=== PATIENT | female | born 1945 | race Caucasian/White ===

== ENCOUNTER 2018-06-30 14:11 | Emergency (ER) | payer OTHER ==
[2018-06-30 16:51] LABS: Absolute Lymphocytes (CBC) 1.9 K/uL (0.7-4.9); Absolute Monocytes 0.9 K/uL (0.1-1.3); Basophils % 0.6 % (0-1.3); Eosinophils % 2.2 % (0-4.4); Hematocrit 37.7 % (36.0-45.0); Lymphocytes % 21.3 % (15.3-44.8); Monocytes % 10.1 % (3.3-12.3)
[2018-06-30 16:54] LABS: Protime INR 0.98
[2018-06-30 17:13] LABS: ALT/SGPT 26 U/L (12-78); AST/SGOT 14 U/L (15-37); Albumin 3.6 g/dL (3.4-5.0); Alkaline Phosphatase 63 U/L (45-117); BUN Blood Urea Nitrogen 23 mg/dL (7-18); Bicarbonate 29 mmol/L (21-32); Bilirubin Direct 0.1 mg/dL (0-0.2); Bilirubin Total 0.3 mg/dL (0.2-1.0); Glucose Level 86 mg/dL (74-106); Magnesium 2.3 mg/dL (1.8-2.4); NT PRO-BNP 219 pg/mL (<125); Potassium 3.7 mmol/L (3.5-5.1); Protein, Total 6.7 g/dL (6.4-8.2); Sodium Level 141 mmol/L (136-145); Troponin (Emerg Dept Use Only) < 0.02 ng/mL (0.0-0.045)
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
[2018-06-30] MEDS ORDERED: HYDROCODONE/APAP 10/325 TAB ONE (19:38)
[2018-06-30] MEDS ORDERED: KETOROLAC 30 MG/ML INJ ONE (19:38)
--- NOTE | 2018-07-01 08:47 | EKG ---
Test Date: 2018-06-30 Test Time: 16:02:17 Land Classifier: EVELYNE MEASUREMENT RESULTS: Intervals: Rate: 65 MD: 230 QRSD: 88 QT: 426 QTc: 443 [place]: P: 58 MD: 230 QRS: -18 T: 40 INTERPRETIVE STATEMENTS: Sinus rhythm with 1st degree AV block Low voltage QRS Cannot rule out Anterior infarct, age undetermined Abnormal ECG No previous ECG available for comparison Electronically Signed On 07-01-18 08:46:49 [employer]ACH[employer] by Richard Murdock
== END 2018-06-30 19:53 | disposition home or self-care (01) ==
LOC: ER 14:11
DX: R07.89 Other chest pain (principal); V89.2XXA Person injured in unspecified motor-vehicle accident, traffic, initial encounter; Z86.718 Personal history of other venous thrombosis and embolism
CPT/HCPCS: 36415; 71250; 74176; 80048; 80076; 83735; 83880; 84484; 85025; 85610; 93005; 96372; 99285

== ENCOUNTER 2020-12-08 20:15 | Inpatient (IN) | payer OTHER ==
--- OUTSIDE RECORDS SUMMARY | 2020-12-08 20:18 | XMS REPORT | Continuity of Care Document ---
:1945 Author Organization [facility] t Address [address] [place] [address] Care Team Providers Name Role Phone Nisreen Jack Attending Clinician Problems Condition Condition Condition Status Onset Resolution Last Treating Co mments Source Name Details Category Date Date Treatment Clinician Date Morbid Morbid Problem Active [facility] obesity obesity [facility] due to due to l excess excess Outpati calories calories ent Clinics Pain in Pain in Problem Active [facility] - right knee right knee Me moria l Outpati ent Clinics Body mass Body mass Problem Active [facility] index index [facility] - (BMI) of (BMI) of [facility] a 50-59.9 in 50-59.9 in l adult adult Outpati ent Clinics Primary Primary Diagnosis [facility] Marry [facility] - itis of itis of [facility] left knee left knee l Outpat[facility] ent Clinics Primary Primary Diagnosis [facility] osteoarthr Marry kes - itis of itis of [facility] right knee right knee l Outpati ent Clinics Bilateral Bilateral Problem Active [facility] primary primary [facility] - osteoarthr osteoarthr Me moria itis of itis of l knee knee Outpati ent Clinics Pain in Pain in Problem Active [facility] - left knee left knee Allan brenda l Outpati ent Clinics Allergies, Adverse Reactions, Alerts This patient has no known allergies or adverse reactions. Medications Ordered Filled Start Stop Current Ordering Indication Dosage Frequency Signature Comments Components Source Medication Medication Date Date Medication? Clinician (SIG) Name Name Tolterodine Tolterodine 2019-0 Yes Raymond [address] [facility] Tartrate Tartrate 8-08 [facility] - 00:[facility]: [facility] 00 l [facility]pat[facility] ent [facility]ics atorvastati atorvastati Yes Raymond [address] [facility] n n [place] by mouth [facility] - at bedtime [facility] l [facility]pati ent Clinics Trospium Trospium Yes Raymond [address] Chloride Chloride [place] at bedtime [facility] - on an [facility] empty l stomach Outpati ent Clinics Pantoprazol Pantoprazol Yes Raymond [address] [facility] e Sodium e Sodium [facility] - [facility] Outpat[facility] Clinics Cholecalcif Cholecalcif Yes Raymond as [facility] roma roma [facility] directed kes - [facility] Out[facility]ics Topiramate Topiramate Yes Raymond [address] [facility] Meloxicam Meloxicam Yes Raymond [address] [facility] T[facility] kes - Memoria l Outpati ent Clinics Tramadol Tramadol Yes Raymond [address] HCl HCl [place] as needed [facility] Meclizine Meclizine Yes Raymond [address] [facility] HCl HCl [place] as needed [facility] Hydrocodone Hydrocodone Yes Raymond (Schedule [facility] -Acetaminop -Acetaminop [place] II Drug) [facility] - hen hen TK 1 T PO Memoria BID l Outpati ent Clinics Duloxetine Duloxetine Yes Raymond [address] [facility] HCl HCl [place] kes - [facility] l [facility]i ent Clinics Gabapentin Gabapentin Yes Raymond [address] [facility] [facility] Metronidazo Metronidazo Yes Raymond [address] [facility] le le [place] applicatio [facility] - n to [facility] affected l area Outpati ent Clinics Phentermine Phentermine Yes Raymond [address] [facility] HCl HCl [place] kes - [facility] Procedures This patient has no known procedures. Encounters Start End Encounter Admission Attending Care Care Encounter Source Date/Time Date/Time Type Type Clinicians Facility Department ID 2020-11-08 2020-11-08 [facility] [id number] 2020-10-27 2020-10-27 [facility] [id number] [facility] 2020-10-18 2020-10-18 Out[facility] [id number] [facility] 2020-10-04 2020-10-04 [facility] [id number] [facility] 2020-10-04 2020-10-04 [facility] [id number] [facility] 2020-09-16 2020-09-16 Out[facility] [id number] [facility] 2020-09-13 2020-09-13 Out[facility] [id number] [facility] 2020-09-08 2020-09-08 Out[facility] [id number] [facility] 2020-09-06 2020-09-06 Out[facility] [id number] [facility] 2020-09-01 2020-09-01 Out[facility] [id number] [facility] 2020-08-25 2020-08-25 Out[facility] [id number] [facility] 2020-08-18 2020-08-18 Out[facility] [id number] [facility] 2020-08-09 2020-08-09 Out[facility] [id number] [facility] 2020-08-02 2020-08-02 Out[facility] [id number] [facility] 2020-07-26 2020-07-26 Out[facility] [id number] [facility] 2020-07-26 2020-07-26 Out[facility] [id number] [facility] 2020-07-22 2020-07-22 Out[facility] [id number] [facility] 2020-07-21 2020-07-21 Out[facility] [id number] [facility] 2020-07-15 2020-07-15 Out[facility] [id number] [facility] 2020-07-15 2020-07-15 Out[facility] [id number] [facility] 2020-07-07 2020-07-07 Out[facility] [id number] [facility] 2020-06-17 2020-06-17 Out[facility] [id number] [facility] 2020-06-01 2020-06-01 Out[facility] [id number] [facility] 2020-06-01 2020-06-01 Out[facility] [id number] [facility] 2020-05-23 2020-05-23 [facility] [id number] [facility] 2020-05-18 2020-05-18 [facility] [id number] [facility] 2020-05-09 2020-05-09 Outpatient [facility] [id number] [facility] 2019-12-07 2019-12-07 [facility] [id number] 13:39:00 13:39:00 t [facility] 2019-09-08 2019-09-08 Office Nguyen [facility] [id number] 13:35:17 13:59:34 Visit [facility] [id number] Surgical [id number] Specialti [id number] [place] 2019-02-05 2019-02-05 [facility] [id number] 10:30:00 10:30:00 t [facility] Results This patient has no known results.
[2020-12-08 21:10] LABS: Absolute Lymphocytes (CBC) 0.9 K/uL (0.7-4.9); Basophils % 0.8 % (0-1.3); Hematocrit 38.7 % (36.0-45.0); Lymphocytes % 8.3 % (15.3-44.8); MPV 8.6 fL (7.6-11.3); RBC Red Blood Cell Count 4.48 M/uL (3.86-4.86)
[2020-12-08 21:24] LABS: Protime INR 1.08
[2020-12-08 21:27] LABS: ALT/SGPT 19 U/L (12-78); AST/SGOT 15 U/L (15-37); Albumin 3.7 g/dL (3.4-5.0); Alkaline Phosphatase 48 U/L (45-117); BUN Blood Urea Nitrogen 24 mg/dL (7-18); Bicarbonate 29 mmol/L (21-32); Bilirubin Direct 0.1 mg/dL (0-0.2); Bilirubin Total 0.5 mg/dL (0.2-1.0); Glucose Level 114 mg/dL (74-106); NT PRO-BNP 352 pg/mL (<450); Potassium 3.4 mmol/L (3.5-5.1); Protein, Total 7.2 g/dL (6.4-8.2); Sodium Level 142 mmol/L (136-145); Troponin (Emerg Dept Use Only) < 0.02 ng/mL (0.0-0.045)
--- NOTE | 2020-12-08 21:38 | RAD REPORT ---
EXAM DESCRIPTION: RAD - Knee Right 3 View - 12/08/2020 9:22 pm CLINICAL HISTORY: Right knee pain status post injury FINDINGS: No fracture or dislocation is seen. Marked osteoarthritis. Soft tissue swelling If the patient continues have symptoms to suggest an occult fracture, ligamentous or meniscal injury MRI would be recommended
--- NOTE | 2020-12-08 21:39 | RAD REPORT ---
EXAM DESCRIPTION: Paty Single View12/08/2020 9:22 pm CLINICAL HISTORY: Chest pain COMPARISON: none FINDINGS: The lungs appear clear of acute infiltrate. The heart is mildly enlarged IMPRESSION: No acute abnormalities displayed
[2020-12-08] MEDS ORDERED: MORPHINE 4 MG/ML SYR ONE (22:04)
[2020-12-08] MEDS ORDERED: ONDANSETRON 4 MG/2 ML VIAL ONE (22:04)
[2020-12-08] MEDS ORDERED: FAMOTIDINE 20 MG/2 ML VIAL IV ONE (22:04)
--- NOTE | 2020-12-08 22:36 | ER ---
Nurse's Notes [facility] Name: Marty Farias Age: 75 yrs Sex: Female : 1945 Arrival Date: 12/08/2020 Time: 20:25 Bed 17 Private MD: Diagnosis: Syncope and collapse;Pain in right knee Presentation: 12/08 20:26 Chief complaint: EMS states: Pt had a syncopal episode which caused her to loose consciousness. Pt awoke lying in the floor, BS 147. Coronavirus screen: Client denies travel out of the [place] in the last 14 days. Client presents with at least one sign or symptom that may indicate coronavirus-19. Ebola Screen: Patient negative for fever greater than or equal to 101.5 degrees Fahrenheit, and additional compatible Ebola Virus Disease symptoms Patient denies exposure to infectious person. Initial Sepsis Screen: Does the patient meet any 2 criteria? No. Patient's initial sepsis screen is negative. Does the patient have a suspected source of infection? No. Patient's initial sepsis screen is negative. Risk Assessment: Do you want to hurt yourself or someone else? Patient reports no desire to harm self or others. Onset of symptoms was December 08, 2020. 20:26 Method Of Arrival: EMS: [facility] 20:26 Acuity: LESIA 3 20:33 Care prior to arrival: None. Mechanism of Injury: Fall. Trauma event details: Injury wh occurred in the [facility]. Triage Assessment: 20:30 Neuro: Reports a syncopal episode. Trauma Activation: Physician: ED Physician; Name: LEEANNA; Notified At: 20:33; Arrived At: 20:33 Physician: General Surgeon; Name: ; Notified At: 20:33; Arrived At: Physician: Radiology; Name: ; Notified At: 20:33; Arrived At: Physician: Respiratory; Name: ; Notified At: 20:33; Arrived At: Physician: Lab; Name: ; Notified At: 20:33; Arrived At: Historical: - Allergies: 20:30 No Known Allergies; wh - Home Meds: 20:30 Oxybutynin Chloride Oral [Active]; Tramadol Oral [Active]; meloxicam oral oral [Active]; - PMHx: 20:30 Anemia; Chronic pain; DVT; - PSHx: 20:30 Cholecystectomy; wh - Immunization history:: Adult Immunizations up to date. - Immunization history: Last tetanus immunization: unknown. - Social history:: Smoking status: Patient denies any tobacco usage or history of. Screenin:30 Abuse screen: Denies threats or abuse. Denies injuries from another. Nutritional wh screening: No deficits noted. Tuberculosis screening: No symptoms or risk factors identified. Fall Risk Fall in past 12 months (25 points). Secondary diagnosis (15 points) impaired mobility. Primary Survey: 20:33 NO uncontrolled hemorrhage observed. A: The patient is alert. A: Airway: patent. wh Breathing/Chest: Respiratory pattern: regular. Circulation: Skin color: pink. Disability Alert. Exposure/Environment: All clothing and personal items were removed. Forensic evidence collection is not deemed to be indicated at this time. Items placed in patient belonging bag. There is no evidence of uncontrolled external bleeding. No obvious injuries are noted at this time. A warming method has been applied: A warm blanket has been provided to the patient. 22:00 Reassessment Airway Airway Patent Breathing/Chest Respiratory pattern Regular wh Respiratory effort Spontaneous Unlabored Breath sounds Clear Circulation Color [place] Disability Alert. Assessment: 20:31 General: Appears in no apparent distress. Behavior is calm, cooperative, appropriate wh for age. Pain: Complains of pain in right knee. Neuro: Level of Consciousness is awake, alert, obeys commands, Oriented to person, place, time, situation, Appropriate for age Speech is normal, Facial symmetry appears normal, Reports a syncopal episode. Cardiovascular: Heart tones S1 S2 Rhythm is regular. Respiratory: Airway is patent Respiratory effort is even, unlabored, Respiratory pattern is regular, symmetrical, Breath sounds are clear bilaterally. GI: Abdomen is round non-distended. : No signs and/or symptoms were reported regarding the genitourinary system. EENT: No signs and/or symptoms were reported regarding the EENT system. Derm: Skin is intact, is healthy with good turgor, Skin is pink, warm \T\ dry. normal. Musculoskeletal: Circulation, motion, and sensation intact. 22:00 Reassessment: Patient appears in no apparent distress at this time. No changes from previously documented assessment. Patient and/or family updated on plan of care and expected duration. Pain level reassessed. Patient is alert, oriented x 3, equal unlabored respirations, skin warm/dry/pink. Vital Signs: 20:26 BP 137 / 73; Pulse 67; Resp 18; Temp 97.9; Pulse Ox 94% ; Weight 128.37 kg; Height 5 ft. 4 in. (162.56 cm); 22:30 BP 140 / 85; Pulse 62; Resp 18; Pulse Ox 98% on 2 lpm NC; 12/09 00:00 BP 142 / 59; Pulse 96; Resp 18; Pulse Ox 95% on 2 lpm NC; 12/08 20:26 Body Mass Index 48.58 (128.37 kg, 162.56 cm) Cando Coma Score: 12/08 20:33 Eye Response: spontaneous(4). Verbal Response: oriented(5). Motor Response: obeys commands(6). Total: 15. Trauma Score (Adult): 20:33 Eye Response: spontaneous(1); Verbal Response: oriented(1); Motor Response: obeys commands(2); Systolic BP: > 89 mm Hg(4); Respiratory Rate: 10 to 29 per min(4); Aaron Score: 15; Trauma Score: 12 ED Course: 20:25 Patient arrived in ED. 20:27 Aleksander Bennett PA is PHCP. cp 20:27 Aleksander Rousseau MD is Attending Physician. cp 20:28 Triage completed. 20:30 Patient maintains SpO2 saturation greater than 95% on room air. Thermoregulation: warm blanket given to patient. 20:32 Patient has correct armband on for positive identification. Bed in low position. Call light in reach. Side rails up X 1. Pulse ox on. NIBP on. 20:32 Arm band placed on right wrist. 20:45 Inserted saline lock: 20 gauge in right antecubital area, using aseptic technique. Blood collected. 20:59 Otilia Weiss, RN is Primary Nurse. 21:22 XRAY Knee RIGHT 3 view In Process Unspecified. EDMS 21:22 XRAY Chest (1 view) In Process Unspecified. EDMS 22:25 CT Traumagram (Head C Spine CAP W Con) In Process Unspecified. EDMS 22:34 Simba Mosquera DO is Hospitalizing Provider. 12/09 00:47 No provider procedures requiring assistance completed. Patient admitted, IV remains in place. Administered Medications: 12/08 21:50 Drug: morphine 4 mg Route: IVP; Site: right antecubital; 12/09 00:45 Follow up: Response: No adverse reaction; Pain is decreased; RASS: Alert and Calm (0) 12/08 21:52 Drug: Zofran (Ondansetron) 4 mg Route: IVP; Site: right antecubital; 12/09 00:45 Follow up: Response: No adverse reaction; Nausea is decreased 12/08 21:54 Drug: Pepcid (famotidine) 20 mg Route: IVP; Site: right antecubital; 12/09 00:45 Follow up: Response: No adverse reaction Point of Care Testing: Blood Glucose: 12/08 20:28 Blood Glucose: 147 mg/dL; Ranges: Intake: 12/09 00:48 PO: 120ml (Water); Total: 120ml. Outcome: 12/08 22:36 Decision to Hospitalize by Provider. 12/09 00:48 Admitted to Med/surg accompanied by tech, via stretcher, room 228. Condition: stable Instructed on the need for admit. 00:48 Patient's length of stay in the Emergency Department was greater than 2 hours. 01:15 Patient left the ED. Signatures: Dispatcher MedHo EDWV Aleksander Bennett PA PA cp Habalo, Winsy, RN RN
--- NOTE | 2020-12-08 22:36 | EDPHYS ---
Physician Documentation [facility] Name: Marty Farias Age: 75 yrs Sex: Female : 1945 Arrival Date: 12/08/2020 Time: 20:25 Bed 17 Private MD: ED Physician Aleksander Rousseau HPI: 12/08 20:35 This 75 yrs old Female presents to ER via EMS with complaints of Syncope, cp Fall Injury. 20:35 The patient has experienced syncope, collapsed, lost consciousness. Onset: The cp symptoms/episode began/occurred today, about 1630. Duration: This was a single episode, that lasted an unknown period of time. Associated injury: Right lower extremity: right knee, pain, swelling, tenderness. Associated signs and symptoms: Pertinent positives: abdominal pain, Pertinent negatives: chest pain, confusion, palpitations. Current symptoms: right knee pain. Historical: - Allergies: 20:30 No Known Allergies; - Home Meds: 20:30 Oxybutynin Chloride Oral [Active]; Tramadol Oral [Active]; meloxicam oral oral [Active]; - PMHx: 20:30 Anemia; Chronic pain; DVT; - PSHx: 20:30 Cholecystectomy; - Immunization history:: Adult Immunizations up to date. - Immunization history: Last tetanus immunization: unknown. - Social history:: Smoking status: Patient denies any tobacco usage or history of. ROS: 20:40 Constitutional: Negative for body aches, chills, fever, poor PO intake. cp 20:40 Eyes: Negative for injury, pain, redness, and discharge. cp Exam: 20:45 Constitutional: The patient appears in no acute distress, alert, awake, cp non-diaphoretic, non-toxic, well developed, well nourished, obese. 20:45 Head/Face: Normocephalic, atraumatic. cp 20:45 Eyes: Periorbital structures: appear normal, Pupils: equal, round, and reactive to light and accomodation, Extraocular movements: intact throughout, Conjunctiva: normal, no exudate, no injection, Sclera: no appreciated abnormality, Lids and lashes: appear normal, bilaterally. 20:45 ENT: External ear(s): are unremarkable, Nose: is normal, Mouth: Lips: moist, Oral mucosa: moist, Posterior pharynx: Airway: no evidence of obstruction, patent. 20:45 Neck: C-spine: vertebral tenderness, is not appreciated, crepitus, is not appreciated, ROM/movement: pain, is not appreciated, limited range of motion, is not appreciated. 20:45 Chest/axilla: Inspection: normal, Palpation: is normal, no crepitus, no tenderness. 20:45 Cardiovascular: Rate: normal, Rhythm: regular, JVD: is not appreciated. 20:45 Respiratory: the patient does not display signs of respiratory distress, Respirations: normal, no use of accessory muscles, no retractions, labored breathing, is not present, Breath sounds: are clear throughout, no decreased breath sounds, no stridor, no wheezing. 20:45 Abdomen/GI: Inspection: abdomen appears normal, Bowel sounds: active, all quadrants, Palpation: soft, in all quadrants, mild abdominal tenderness, in the left upper quadrant, rebound tenderness, is not appreciated, voluntary guarding, is not appreciated, involuntary guarding, is not appreciated. 20:45 Back: pain, is absent. 20:45 Musculoskeletal/extremity: Extremities: grossly normal except: noted in the right knee: ecchymosis, pain, swelling, tenderness, ROM: limited passive range of motion due to pain, in the right knee. 20:45 Neuro: Orientation: to person, place \\T\\ time. Mentation: is normal, Motor: moves all fours, strength is normal, Sensation: is normal. 21:01 ECG was reviewed by the Attending Physician. Vital Signs: 20:26 BP 137 / 73; Pulse 67; Resp 18; Temp 97.9; Pulse Ox 94% ; Weight 128.37 kg; Height 5 wh ft. 4 in. (162.56 cm); 22:30 BP 140 / 85; Pulse 62; Resp 18; Pulse Ox 98% on 2 lpm NC; 12/09 00:00 BP 142 / 59; Pulse 96; Resp 18; Pulse Ox 95% on 2 lpm NC; 12/08 20:26 Body Mass Index 48.58 (128.37 kg, 162.56 cm) Ettrick Coma Score: 12/08 20:33 Eye Response: spontaneous(4). Verbal Response: oriented(5). Motor Response: obeys commands(6). Total: 15. Trauma Score (Adult): 20:33 Eye Response: spontaneous(1); Verbal Response: oriented(1); Motor Response: obeys wh commands(2); Systolic BP: > 89 mm Hg(4); Respiratory Rate: 10 to 29 per min(4); Aaron Score: 15; Trauma Score: 12 MDM: 20:37 Patient medically screened. [facility] 21:00 Differential Diagnosis: cardiac arrhythmia, GI bleed, seizure, vasovagal episode. 22:45 Data reviewed: vital signs, nurses notes, lab test result(s), EKG, radiologic studies, cp CT scan, plain films. 22:45 Test interpretation: by ED physician or midlevel provider: ECG, plain radiologic cp studies. Physician consultation: Wilman ARIAS was called at 22:30, was contacted at 22:30, regarding admission, to the telemetry unit. patient's condition. 12/08 20:31 Order name: Basic Metabolic Panel; Complete Time: 21:27 12/08 21:28 Interpretation: Normal except: K 3.4; CL 109; GLUC 114; BUN 24; CRE 1.35; GFR 38. / 20:31 Order name: CBC with Diff; Complete Time: 21:27 /10 21:27 Interpretation: Normal except: ESTEBAN% 78.8; LYM% 8.3; NEUT A 8.2. 06/10 20:31 Order name: LFT's; Complete Time: 21:27 12/08 20:31 Order name: Magnesium; Complete Time: 21:27 12/08 20:31 Order name: NT PRO-BNP; Complete Time: 21:27 / 20:31 Order name: PT-INR; Complete Time: 21:32 / 20:31 Order name: XRAY Knee RIGHT 3 view; Complete Time: 22:12 / 20:31 Order name: Troponin (emerg Dept Use Only); Complete Time: 21:27 / 20:31 Order name: XRAY Chest (1 view); Complete Time: 22:12 12/08 20:31 Order name: CT Traumagram (Head C Spine CAP W Con) 12/08 22:38 Order name: COVID-19 : Document "Date of Symptom Onset" if Symptomatic. 12/09 00:13 Order name: SARS-COV-2 RT PCR EDMS 12/08 20:31 Order name: EKG; Complete Time: 20:31 cp 12/08 20:31 Order name: Cardiac monitoring; Complete Time: 20:59 cp 12/08 20:31 Order name: EKG - Nurse/Tech; Complete Time: 20:59 cp 12/08 20:31 Order name: IV Saline Lock; Complete Time: 20:59 cp 12/08 20:31 Order name: Labs collected and sent; Complete Time: 20:59 cp 12/08 20:31 Order name: O2 Per Protocol; Complete Time: 20:59 cp 12/08 20:31 Order name: O2 Sat Monitoring; Complete Time: 20:59 cp 12/08 21:27 Order name: Knee Immobilizer; Complete Time: 01:08 cp EC:01 Rate is 59 beats/min. Rhythm is regular. SD interval is prolonged at 280 msec. QRS cp interval is normal. QT interval is normal. Interpreted by me. Reviewed by me. Administered Medications: 21:50 Drug: morphine 4 mg Route: IVP; Site: right antecubital; 12/09 00:45 Follow up: Response: No adverse reaction; Pain is decreased; RASS: Alert and Calm (0) 12/08 21:52 Drug: Zofran (Ondansetron) 4 mg Route: IVP; Site: right antecubital; 12/09 00:45 Follow up: Response: No adverse reaction; Nausea is decreased 12/08 21:54 Drug: Pepcid (famotidine) 20 mg Route: IVP; Site: right antecubital; 12/09 00:45 Follow up: Response: No adverse reaction Point of Care Testing: Blood Glucose: 12/08 20:28 Blood Glucose: 147 mg/dL; Ranges: Critical Glucose Levels:Adult <50 mg/dl or >400 mg/dl <40 mg/dl or >180 mg/dl Disposition: 12/09 07:12 Co-signature as Attending Physician, Aleksander Rousseau MD I agree with the assessment and uyen plan of care. Disposition: 12/08/20 22:36 Hospitalization ordered by Simba Mosquera for Observation. Preliminary diagnosis are Syncope and collapse, Pain in right knee. - Bed requested for Telemetry/MedSurg (observation). - Status is Observation. - Condition is Fair. - Problem is new. - Symptoms have improved. Signatures: Dispatcher [employer] EDMD Aleksander Rousseau MD MD cha Page, Corey, PA PA cp Garcia, Cindy, RAYSHAWN RN Otilia Weiss RN RN Corrections: (The following items were deleted from the chart) 12/08 22:36 22:36 Hospitalization Ordered by [facility] for Inpatient Admission. Preliminary cp diagnosis is Syncope and collapse; Pain in right knee. Bed requested for Telemetry/MedSurg (Inpatient). Status is Inpatient Admission. Condition is Fair. Problem is new. Symptoms have improved. cp 23:05 22:39 CORONAVIRUS ordered. [facility] EDMD 12/09 00:31 12/08 22:36 12/08/2020 22:36 Hospitalization Ordered by [facility] for Observation. Preliminary diagnosis is Syncope and collapse; Pain in right knee. Bed requested for Telemetry/MedSurg (observation). Status is Observation. Condition is Fair. Problem is new. Symptoms have improved. cp 12/09 01:15 00:31 12/08/2020 22:36 Hospitalization Ordered by [facility] for Observation. Preliminary diagnosis is Syncope and collapse; Pain in right knee. Bed requested for Telemetry/MedSurg (observation). Status is Observation. Condition is Fair. Problem is new. Symptoms have improved.
--- NOTE | 2020-12-09 01:00 | P.HP ---
Certification for Inpatient Patient admitted to: Observation Patient will require the following post-hospital care: None Practitioner: I am a practitioner with admitting privileges, knowledge of patient current condition, hospital course, and medical plan of care. Services: Services provided to patient in accordance with Admission requirements found in Title 42 Section 412.3 of the Code of Federal Regulations Patient History Date of Service: 12/09/20 Primary Care Provider: Dr. Goldsmith Reason for admission: Syncope, weakness History of Present Illness: 75-year-old female with history of anemia, DVT, hypertension, hyperlipidemia, obesity presents emergency department after syncopal episode. Patient currently lives at home alone after being approximately 5 years prior, patient reports over the course of the last month she has had increasing weakness, patient reports that she stays in her recliner all the time, reports that she is only able to shower once every couple of weeks, reports not always being able to make it to the bathroom and having to urinate next to her recliner at home, patient reports not being able to bear weight. Patient is having physical therapy approximately 2 0.5 hr away from our house twice a week with hydrotherapy but she is not getting significantly better, patient reports that when she got back to her house today and she got up for elevator which she has to take to get to her house she had a syncopal episode, she reports getting dizzy and then losing consciousness and waking up on the floor after an unknown amount of time. Patient was evaluated in the emergency department, labs significant for renal insufficiency creatinine 1.35 GFR 38, this is worse than her previous renal function last measured in [address] trauma Gram negative for any acute findings x-ray of the right knee negative for any acute findings, chest x-ray unremarkable. Patient appears very dry on evaluation, reports that she has difficulty making into the kitchen in order to prepare food and drink, reports eating usually once a day stuff that does not require cooking. In the emergency department patient unable to get out of bed or ambulate without significant levels of assistance. ED provider wishes to admit for syncope, debility, weakness. Allergies No Known Allergies Allergy (Uncoded 03/02/16 22:11) Unknown - Past Medical/Surgical History -: Hypertension -: Hyperlipidemia -: History of DVT many years ago -: Anemia -: Cholecystectomy -: Psychosocial/ Personal History: Patient is disabled, lives alone - Family History Mother -: Heart disease - Social History Smoking Status: Never smoker Alcohol use: No CD- Drugs: No Caffeine use: No Place of Residence: Home Review of Systems 10-point ROS is otherwise unremarkable General: Weakness, Malaise Cardiovascular: Light Headedness, Other (Syncope), As per HPI Musculoskeletal: Arm Pain (Bilateral arm pain), Leg Pain (Bilateral knee pain and) Physical Examination - Physical Exam General: Alert, In no apparent distress, Obese HEENT: Atraumatic, PERRLA, Other (Mucous membranes dry) Neck: Supple, 2+ carotid pulse no bruit, No LAD Respiratory: Clear to auscultation bilaterally, Normal air movement Cardiovascular: Regular rate/rhythm, Normal S1 S2 Capillary refill: <2 Seconds Gastrointestinal: Normal bowel sounds, No tenderness Musculoskeletal: No tenderness Integumentary: No rashes Neurological: Normal speech, Normal tone, Normal affect, Abnormal strength (Strength 4/5 all 4 extremities) - Studies Laboratory Data (last 24 hrs) 12/08/20 21:00: PT 12.4, INR 1.08 12/08/20 21:00: WBC 10.30, Hgb 13.1, Hct 38.7, Plt Count 243 12/08/20 21:00: Sodium 142, Potassium 3.4 L, BUN 24 H, Creatinine 1.35 H, Glucose 114 H, Magnesium 2.0, Total Bilirubin 0.5, AST 15, ALT 19, Alkaline Phosphatase 48 Assessment and Plan - Plan Assessment Syncope likely related to dehydration, weakness Acute kidney injury Debility, weakness secondary to morbid obesity, likely depression, m usculoskeletal pain Hypertension Hyperlipidemia Plan Syncope likely related to dehydration, weakness: Monitor on telemetry, will obtain echocardiogram, carotid ultrasound, orthostatics vital signs. CT trauma gram/head negative for any acute findings. Patient moving all 4 extremities, no focal neurological deficits, no sign of acute CVA at this time. Patient reports history of near-syncope multiple times in the past with dizziness leading up to the event. Will provide patient with IV fluids overnight as she does appear dry. Acute kidney injury: Likely related to dehydration, poor oral intake. Will continue IV fluids overnight, repeat labs in the morning. Consult nephrology as necessary. Will obtain renal ultrasound. Debility, weakness secondary to morbid obesity, likely depression, musculoskeletal pain: Will have patient evaluated by physical therapy, patient likely would benefit from inpatient rehab versus snf facility, patient amendable to this temporarily but does wish to return home at some point. director of therapy services consult as well for additional assistance. Hypertension: Obtain and continue home medications as appropriate Hyperlipidemia: Obtain and continue home medications as appropriate Discharge Plan: Other (Inpatient rehab) Plan to discharge in: 48 Hours - Advance Directives Does patient have a Living Will: No Does patient have a Durable POA for Healthcare: No - Code Status/Comfort Care Code Status Assessed: Yes (DNR) Critical Care: No Time Spent Managing Pts Care (In Minutes): 55
[2020-12-09] MEDS: NA CHLORIDE 0.9% 1,000 ML IV SCH ×2 (01:03→03:00)
[2020-12-09] MEDS ORDERED: ONDANSETRON 4 MG/2 ML VIAL IV PRN (01:03)
[2020-12-09 01:50] VITALS: BMI 48.5
[2020-12-09 04:18] LABS: Basophils % 0.6 % (0-1.3); Hematocrit 37.4 % (36.0-45.0); Lymphocytes % 12.7 % (15.3-44.8); MPV 8.9 fL (7.6-11.3); RBC Red Blood Cell Count 4.31 M/uL (3.86-4.86)
[2020-12-09 04:32] LABS: ALT/SGPT 48 U/L (12-78); AST/SGOT 81 U/L (15-37); Albumin 3.2 g/dL (3.4-5.0); Alkaline Phosphatase 46 U/L (45-117); BUN Blood Urea Nitrogen 24 mg/dL (7-18); Bicarbonate 25 mmol/L (21-32); Bilirubin Total 0.6 mg/dL (0.2-1.0); Glucose Level 100 mg/dL (74-106); HDL Cholesterol 56 mg/dL (40-60); LDL Cholesterol, Calculated 98 (<130); Magnesium 1.9 mg/dL (1.8-2.4); Potassium 3.8 mmol/L (3.5-5.1); Protein, Total 6.6 g/dL (6.4-8.2); Sodium Level 142 mmol/L (136-145); Troponin I < 0.02 ng/mL (0.0-0.045)
[2020-12-09] MEDS ORDERED: MELOXICAM 7.5 MG TAB PO PRN (05:10)
--- NOTE | 2020-12-09 07:22 | P.PN ---
Subjective Date of Service: 12/09/20 Primary Care Provider: Dr. Goldsmith Chief Complaint: Syncope, weakness Subjective: Other (Patient lives at home by herself. She uses a lift chair for mobility. Patient has limited mobility.) Physical Examination - Vital Signs Temperature: 97.9 F Blood Pressure: 145/66 Pulse: 62 Respirations: 17 Pulse Ox (%): 94 - Studies Laboratory Data (last 24 hrs) 12/08/20 21:00: PT 12.4, INR 1.08 12/08/20 21:00: WBC 10.30, Hgb 13.1, Hct 38.7, Plt Count 243 12/08/20 21:00: Sodium 142, Potassium 3.4 L, BUN 24 H, Creatinine 1.35 H, Glucose 114 H, Magnesium 2.0, Total Bilirubin 0.5, AST 15, ALT 19, Alkaline Phosphatase 48 Assessment & Plan Discharge Plan: Other (senior care facility) Plan to discharge in: 48 Hours Physician Review Additional Text: Physical Exam: GENERAL: The patient is a well-developed, well-nourished, in no apparent distress. Alert and oriented x3. VITAL SIGNS: Reviewed HEENT: Neck supple. Nares dry. LUNGS: Clear to auscultation. No crackles or wheezes are heard. HEART: Regular rate and rhythm, no appreciable gallops, rubs, murmurs or extra heart sounds ABDOMEN: Soft, nontender, and nondistended. Positive bowel sounds. No hepatosplenomegaly was noted. EXTREMITIES: Patient with brace to the right lower extremity. Dry skin noted throughout. NEUROLOGIC: The patient is oriented to person, place and time. Strength and sensation are grossly intact. Face is symmetric. SKIN: Normal color, turgor and temperature. No ulcerations or rashes noted. Impression: Syncope likely related to dehydration, weakness with acute renal injury Debility, weakness secondary to morbid obesity and musculoskeletal pain Urinary incontinence Morbid obesity, BMI 48.6 Plan Syncope likely related to dehydration, weakness with acute renal injury: Renal function improved with hydration. Continue with IV fluids. Will obtain echocardiogram, carotid Doppler. Will monitor orthostatics. Patient with debility secondary to morbid obesity and musculoskeletal pain. Will have physical therapy assess ambulation. Patient would benefit with skilled placement. Will talk to elementary school social worker to see if this is possible. Patient high risk for fall and injury. She recently started water therapy in [place]. Will try to pursue skilled placement at a facility near [place] where she could still potentially do water therapy as well. Await further recommendations from physical therapy. Monitor and trend electrolytes. Anticipate improvement over the next 48 hours. Debility, weakness secondary to morbid obesity and musculoskeletal pain: Patient uses a power lift chair at home. She also has a walker. Mobility is limited. She recently started water therapy. In current condition patient is high risk for fall and injury. Would recommend skilled placement. Await physical therapy evaluation. Will discuss with elementary school social worker. Urinary incontinence: Continue with medication. Morbid obesity, BMI 48.6: Continue with lifestyle modification education. Code Status: Patient is DNR DVT prophylaxis: Lovenox Advanced Care Planning-30 minutes: Plan of care for the patient's discharge was discussed in detail with the patient. Patient desires skilled placement. Patient is a DO NOT RESUSCITATE. Time Spent Managing Pts Care (In Minutes): 55
[2020-12-09] MEDS: NACHLORIDE 0.45% 1,000 ML IV SCH ×2 (10:39→20:22)
[2020-12-09] MEDS: OXYBUTYNIN ER 5 MG TAB PO SCH (10:40)
[2020-12-09] MEDS: ENOXAPARIN 40 MG/0.4 ML SQ SCH (10:40)
--- NOTE | 2020-12-09 11:57 | RAD REPORT ---
EXAM DESCRIPTION: CT - Head C Spine Jomar Celestin - 12/09/2020 4:24 am CLINICAL HISTORY: Fall;Pain. TECHNIQUE: Axial, coronal, and sagittal images through the brain were performed in the absence of in travenous contrast. CT of the cervical spine was performed without contrast. Axial, coronal, and sagittal reconstructions were created and sent to PACS. CT of the chest, abdomen, and pelvis was performed following intravenous administration of iodinated contrast. Oral contrast was not administered. Axial, coronal, and sagittal reconstructions were creat ed and sent to PACS. These exams were performed according to our departmental dose-optimization program which includes use of Automated Exposure Control, adjustment of the mA and/or kV according to patient size and/or use o f iterative reconstruction technique. COMPARISON: CT of the chest, abdomen, and pelvis from June 30, 2018. CT of the head from 2015. FINDINGS: CT Head: There is diffuse age-appropriate atrophy seen throughout the brain parenchyma. Mild periventricular w mamie matter changes are seen to be present and there is mild ex vacuo dilatation of the ventricular s ystem. There is no intra-axial or extra-axial bleed. There is no mass or mass effect. Partially calcified osteoma versus mucus retention cyst with high density mucus in the left frontal s inus. The remaining visualized paranasal sinuses and mastoid air cells are patent. No fracture is prashant ntified. CT cervical spine: No acute osseous abnormality identified. Vertebral body height and alignment are maintained. No atlan todental interval widening. Atlantoaxial alignment is maintained. C2-C3: No significant central canal or neuroforaminal narrowing. C3-C4: Mild left-sided neuroforaminal stenosis due to facet hypertrophy. No significant central canal or right neuroforaminal narrowing. C4-C5: No significant central canal or neuroforaminal narrowing. C5-C6: Moderate disc height loss. Posterior disc osteophyte complex results in borderline narrowing o f the central canal to 0.8 cm AP. No significant neuroforaminal narrowing. C6-C7: Posterior disc osteophyte complex with prominent disc height loss and borderline narrowing of the central canal to 0.8 to 0.9 cm AP. No significant neuroforaminal narrowing. Paraspinal soft tissues: Trace calcific atherosclerosis. CT chest, abdomen, and pelvis: Lungs and pleura: No pulmonary consolidation. No pleural effusion. No pneumothorax. Mediastinum and neck: No mediastinal lymphadenopathy identified by CT size criteria. Unremarkable aron earance of the thyroid gland. Cardiac: No cardiomegaly or pericardial effusion. No thoracic aortic aneurysm or dissection. Hepatobiliary: No concerning hepatic lesion identified. The hepatic and portal veins are patent. The gallbladder is surgically absent. Similar appearance of the mildly prominent common bile duct, likely postsurgical and age-related. Pancreas: Unremarkable. Spleen: Unremarkable. Gastrointestinal: No evidence of bowel obstruction or perienteric inflammation. The appendix is cherelle l. Mild left colonic diverticulosis. Small amount of fecal material in the colon. Adrenals: No abnormality identified in either adrenal gland. Renal: Thin nonobstructive calculus in the inferior pole of the left kidney measures 0.6 x 0.2 cm. No concerning parenchymal abnormality in either kidney. No hydronephrosis or right-sided urolithiasis. Bladder/Reproductive: Unremarkable appearance of the urinary bladder by CT technique. Small calcified uterine fibroids Vascular/Lymphatics: No lymphadenopathy identified by CT size criteria. Abdominal aorta is normal in caliber. Mild calcific atherosclerosis. The major visceral vessels are patent. Infrarenal IVC filter in place. Musculoskeletal: No acute osseous abnormality or concerning osseous lesion identified. Spinal degener ative changes. Mild convex to the left curvature of the lumbar spine. Fluid / peritoneum: No significant free fluid. No free intraperitoneal air identified. IMPRESSION 1. No acute intracranial abnormality identified. 2. No acute osseous abnormality identified in the cervical spine. 3. No acute abnormality identified in the chest, abdomen, or pelvis. Electronically signed by: Jhoana Wong MD 12/08/2020 10:41 PM CDT Due to temporary technical issues with the PACS/Fluency reporting system, reports are being signed by the in house radiologist without review as a courtesy to ensure prompt reporting. The interpreting r adiologist is fully responsible for the content of the report.
--- NOTE | 2020-12-09 17:28 | RAD REPORT ---
EXAM DESCRIPTION: US - Renal Ultrasound-Complete - 12/09/2020 5:07 pm CLINICAL HISTORY: DUNG Flank pain COMPARISON: No comparisons FINDINGS: Both kidneys are normal in size, shape and echotexture. The right kidney measures 10.4 x 5.1 x 4.1 cm. No hydronephrosis, focal mass or perinephric fluid. The left kidney measures 10.0 x 5.8 x 4.2 cm. No hydronephrosis, focal mass or perinephric fluid. 13 mm parapelvic benign cyst on the left. The urinary bladder is incompletely distended without gross abnormality seen. IMPRESSION: Small left renal cyst, otherwise negative examination.
--- NOTE | 2020-12-09 18:04 | RAD REPORT ---
EXAM DESCRIPTION: - CP - 12/09/2020 5:36 pm CLINICAL HISTORY: SYNCOPE Headache, drowsiness COMPARISON: No comparisons TECHNIQUE: Real-time sonographic evaluation of both carotid systems was performed. Doppler interroga tion was performed with waveform tracing bilaterally. FINDINGS: Normal high resistance waveforms are noted in both external carotid arteries. The common c arotid arteries and internal carotid arteries show normal low resistance waveforms. No significant plaque formation is seen. Peak systolic and end diastolic velocity values and the ICA/ CCA ratios are in the non-hemodynamically significant range. Antegrade flow seen in both vertebral arteries. IMPRESSION: No significant atherosclerotic changes noted. No evidence of a hemodynamically significant stenosis.
[2020-12-10] MEDS: TRAMADOL HCL 50 MG TAB PO PRN ×3 (00:25→20:39)
[2020-12-10 01:33] LABS: Urine Appearance CLEAR (Clear); Urine Bilirubin NEGATIVE (Negative); Urine Blood TRACE (Negative); Urine Color YELLOW (Yellow); Urine Glucose NEGATIVE (Negative); Urine Protein NEGATIVE (Negative)
[2020-12-10 01:46] LABS: Urine Microscopic Reflex ORDER UMIC
[2020-12-10 02:02] LABS: Urine Bacteria 20-50 /HPF (<20); Urine RBC <5 /HPF (NONE SEEN)
[2020-12-10 05:52] LABS: Absolute Lymphocytes (CBC) 1.1 K/uL (0.7-4.9); Basophils % 0.5 % (0-1.3); Lymphocytes % 13.9 % (15.3-44.8); MPV 8.7 fL (7.6-11.3); RBC Red Blood Cell Count 3.92 M/uL (3.86-4.86)
--- NOTE | 2020-12-10 05:57 | P.PN ---
Subjective Date of Service: 12/10/20 Primary Care Provider: Dr. Goldsmith Chief Complaint: Syncope, weakness Subjective: Improving, Doing well Physical Examination - Vital Signs Temperature: 99.8 F Blood Pressure: 124/58 Pulse: 71 Respirations: 18 Pulse Ox (%): 95 Assessment & Plan Discharge Plan: Other (detention facility) Plan to discharge in: 48 Hours Physician Review Additional Text: Renal US: COMPARISON: No comparisons FINDINGS: Both kidneys are normal in size, shape and echotexture. The right kidney measures 10.4 x 5.1 x 4.1 cm. No hydronephrosis, focal mass or perinephric fluid. The left kidney measures 10.0 x 5.8 x 4.2 cm. No hydronephrosis, focal mass or perinephric fluid. 13 mm parapelvic benign cyst on the left. The urinary bladder is incompletely distended without gross abnormality seen. IMPRESSION: Small left renal cyst, otherwise negative examination. Carotid Doppler: FINDINGS: Normal high resistance waveforms are noted in both external carotid arteries. The common carotid arteries and internal carotid arteries show normal low resistance waveforms. No significant plaque formation is seen. Peak systolic and end diastolic [place] values and the ICA/CCA ratios are in the non-hemodynamically significant range. Antegrade flow seen in both vertebral arteries. IMPRESSION: No significant atherosclerotic changes noted. No evidence of a hemodynamically significant stenosis. CT scan: COMPARISON: CT of the chest, abdomen, and pelvis from June 30, 2018. CT of the head from March 02, 2016. FINDINGS: CT Head: There is diffuse age-appropriate atrophy seen throughout the brain parenchyma. Mild periventricular white matter changes are seen to be present and there is mild ex vacuo dilatation of the ventricular system. There is no intra-axial or extra-axial bleed. There is no mass or mass effect. Partially calcified osteoma versus mucus retention cyst with high density mucus in the left frontal sinus. The remaining visualized paranasal sinuses and mastoid air cells are patent. No fracture is identified. CT cervical spine: No acute osseous abnormality identified. Vertebral body height and alignment are maintained. No atlantodental interval widening. Atlantoaxial alignment is maintained. C2-C3: No significant central canal or neuroforaminal narrowing. C3-C4: Mild left-sided neuroforaminal stenosis due to facet hypertrophy. No significant central canal or right neuroforaminal narrowing. C4-C5: No significant central canal or neuroforaminal narrowing. C5-C6: Moderate disc height loss. Posterior disc osteophyte complex results in borderline narrowing of the central canal to 0.8 cm AP. No significant neuroforaminal narrowing. C6-C7: Posterior disc osteophyte complex with prominent disc height loss and borderline narrowing of the central canal to 0.8 to 0.9 cm AP. No significant neuroforaminal narrowing. Paraspinal soft tissues: Trace calcific atherosclerosis. CT chest, abdomen, and pelvis: Lungs and pleura: No pulmonary consolidation. No pleural effusion. No pneumothorax. Mediastinum and neck: No mediastinal lymphadenopathy identified by CT size criteria. Unremarkable appearance of the thyroid gland. Cardiac: No cardiomegaly or pericardial effusion. No thoracic aortic aneurysm or dissection. Hepatobiliary: No concerning hepatic lesion identified. The hepatic and portal veins are patent. The gallbladder is surgically absent. Similar appearance of the mildly prominent common bile duct, likely postsurgical and age-related. Pancreas: Unremarkable. Spleen: Unremarkable. Gastrointestinal: No evidence of bowel obstruction or perienteric inflammation. The appendix is normal. Mild left colonic diverticulosis. Small amount of fecal material in the colon. Adrenals: No abnormality identified in either adrenal gland. Renal: Thin nonobstructive calculus in the inferior pole of the left kidney measures 0.6 x 0.2 cm. No concerning parenchymal abnormality in either kidney. N o hydronephrosis or right-sided urolithiasis. Bladder/Reproductive: Unremarkable appearance of the urinary bladder by CT technique. Small calcified uterine fibroids Vascular/Lymphatics: No lymphadenopathy identified by CT size criteria. Abdominal aorta is normal in caliber. Mild calcific atherosclerosis. The major visceral vessels are patent. Infrarenal IVC filter in place. Musculoskeletal: No acute osseous abnormality or concerning osseous lesion identified. Spinal degenerative changes. Mild convex to the left curvature of the lumbar spine. Fluid / peritoneum: No significant free fluid. No free intraperitoneal air identified. IMPRESSION 1. No acute intracranial abnormality identified. 2. No acute osseous abnormality identified in the cervical spine. 3. No acute abnormality identified in the chest, abdomen, or pelvis. Physical Exam: GENERAL: The patient is a well-developed, well-nourished, in no apparent distress. Alert and oriented x3. VITAL SIGNS: Reviewed HEENT: Neck supple. Nares dry. LUNGS: Clear to auscultation. No crackles or wheezes are heard. HEART: Regular rate and rhythm, no appreciable gallops, rubs, murmurs or extra heart sounds ABDOMEN: Soft, nontender, and nondistended. Positive bowel sounds. No hepatosplenomegaly was noted. EXTREMITIES: Patient with brace to the right lower extremity. Improvement in dry skin noted. NEUROLOGIC: The patient is oriented to person, place and time. Strength and sensation are grossly intact. Face is symmetric. SKIN: Normal color, turgor and temperature. No ulcerations or rashes noted. Impression: Syncope likely related to dehydration, weakness with acute renal injury Debility, weakness secondary to morbid obesity and musculoskeletal pain Urinary incontinence Morbid obesity, BMI 48.6 Plan Syncope likely related to dehydration, weakness with acute renal injury: Renal function to baseline. Discontinue IV fluids. Encourage oral intake and nutrition. Continue physical therapy. Social work arranging for skilled placement. Anticipate approval for skilled placement likely on Saturday. Debility, weakness secondary to morbid obesity and musculoskeletal pain: Patient uses a power lift chair at home. She also has a walker. Mobility is limited. She recently started water therapy. In current condition patient is high risk for fall and injury. Continue physical therapy. Patient desires to go to skilled placement. I would highly recommend this at this time. Social work in progress to place patient at a skilled facility. Urinary incontinence: Continue with medication. Morbid obesity, BMI 48.6: Continue with lifestyle modification education. Code Status: Patient is DNR DVT prophylaxis: Lovenox Advanced Care Planning-30 minutes: Plan of care for the patient's discharge was discussed in detail with the patient. Patient desires skilled placement. Social work working to get patient to skilled facility. Patient is a DO NOT RESUSCITATE. Time Spent Managing Pts Care (In Minutes): 55
[2020-12-10 06:13] LABS: ALT/SGPT 48 U/L (12-78); AST/SGOT 37 U/L (15-37); Albumin 2.8 g/dL (3.4-5.0); Alkaline Phosphatase 43 U/L (45-117); BUN Blood Urea Nitrogen 15 mg/dL (7-18); Bicarbonate 26 mmol/L (21-32); Bilirubin Total 0.6 mg/dL (0.2-1.0); Glucose Level 93 mg/dL (74-106); Magnesium 1.9 mg/dL (1.8-2.4); Protein, Total 5.9 g/dL (6.4-8.2); Sodium Level 141 mmol/L (136-145)
[2020-12-10] MEDS: OXYBUTYNIN ER 5 MG TAB PO SCH (09:34)
[2020-12-10] MEDS: ENOXAPARIN 40 MG/0.4 ML SQ SCH (09:35)
[2020-12-10] MEDS ORDERED: DIPHENHYDRAMINE 25 MG TAB/CAP PO ONE (20:45)
[2020-12-10] MEDS ORDERED: DIPHENHYDRAMINE 25 MG TAB/CAP ONE (21:07)
[2020-12-11] MEDS: TRAMADOL HCL 50 MG TAB PO PRN ×2 (04:24→20:04)
--- NOTE | 2020-12-11 06:00 | P.PN ---
Subjective Date of Service: 12/11/20 Primary Care Provider: Dr. Goldsmith Chief Complaint: Syncope, weakness Subjective: Improving, Doing well Physical Examination - Vital Signs Temperature: 98.4 F Blood Pressure: 138/63 Pulse: 67 Respirations: 18 Pulse Ox (%): 94 - Studies Laboratory Data (last 24 hrs) 12/10/20 05:41: Sodium 141, Potassium 4.0, BUN 15, Creatinine 0.50 L, Glucose 93, Magnesium 1.9, Total Bilirubin 0.6, AST 37, ALT 48, Alkaline Phosphatase 43 L Assessment & Plan Discharge Plan: Other ([facility] facility) Plan to discharge in: 24 Hours Physician Review Additional Text: Renal US: COMPARISON: No comparisons FINDINGS: Both kidneys are normal in size, shape and echotexture. The right kidney measures 10.4 x 5.1 x 4.1 cm. No hydronephrosis, focal mass or perinephric fluid. The left kidney measures 10.0 x 5.8 x 4.2 cm. No hydronephrosis, focal mass or perinephric fluid. 13 mm parapelvic benign cyst on the left. The urinary bladder is incompletely distended without gross abnormality seen. IMPRESSION: Small left renal cyst, otherwise negative examination. Carotid Doppler: FINDINGS: Normal high resistance waveforms are noted in both external carotid arteries. The common carotid arteries and internal carotid arteries show normal low resistance waveforms. No significant plaque formation is seen. Peak systolic and end diastolic velocity values and the ICA/CCA ratios are in the non-hemodynamically significant range. Antegrade flow seen in both vertebral arteries. IMPRESSION: No significant atherosclerotic changes noted. No evidence of a hemodynamically significant stenosis. CT scan: COMPARISON: CT of the chest, abdomen, and pelvis from June 30, 2018. CT of the head from March 02, 2016. FINDINGS: CT Head: There is diffuse age-appropriate atrophy seen throughout the brain parenchyma. Mild periventricular white matter changes are seen to be present and there is mild ex vacuo dilatation of the ventricular system. There is no intra-axial or extra-axial bleed. There is no mass or mass effect. Partially calcified osteoma versus mucus retention cyst with high density mucus in the left frontal sinus. The remaining visualized paranasal sinuses and mastoid air cells are patent. No fracture is identified. CT cervical spine: No acute osseous abnormality identified. Vertebral body height and alignment are maintained. No atlantodental interval widening. Atlantoaxial alignment is maintained. C2-C3: No significant central canal or neuroforaminal narrowing. C3-C4: Mild left-sided neuroforaminal stenosis due to facet hypertrophy. No significant central canal or right neuroforaminal narrowing. C4-C5: No significant central canal or neuroforaminal narrowing. C5-C6: Moderate disc height loss. Posterior disc osteophyte complex results in borderline narrowing of the central canal to 0.8 cm AP. No significant neuroforaminal narrowing. C6-C7: Posterior disc osteophyte complex with prominent disc height loss and borderline narrowing of the central canal to 0.8 to 0.9 cm AP. No significant neuroforaminal narrowing. Paraspinal soft tissues: Trace calcific atherosclerosis. CT chest, abdomen, and pelvis: Lungs and pleura: No pulmonary consolidation. No pleural effusion. No pneumothorax. Mediastinum and neck: No mediastinal lymphadenopathy identified by CT size criteria. Unremarkable appearance of the thyroid gland. Cardiac: No cardiomegaly or pericardial effusion. No thoracic aortic aneurysm or dissection. Hepatobiliary: No concerning hepatic lesion identified. The hepatic and portal veins are patent. The gallbladder is surgically absent. Similar appearance of the mildly prominent common bile duct, likely postsurgical and age-related. Pancreas: Unremarkable. Spleen: Unremarkable. Gastrointestinal: No evidence of bowel obstruction or perienteric inflammation. The appendix is normal. Mild left colonic diverticulosis. Small amount of fecal material in the colon. Adrenals: No abnormality identified in either adrenal gland. Renal: Thin nonobstructive calculus in the inferior pole of the left kidney measures 0.6 x 0.2 cm. No concerning parenchymal abnormality in either kidney. No hydronephrosis or right-sided urolithiasis. Bladder/Reproductive: Unremarkable appearance of the urinary bladder by CT technique. Small calcified uterine fibroids Vascular/Lymphatics: No lymphadenopathy identified by CT size criteria. Abdominal aorta is normal in caliber. Mild calcific atherosclerosis. The major visceral vessels are patent. Infrarenal IVC filter in place. Musculoskeletal: No acute osseous abnormality or concerning osseous lesion identified. Spinal degenerative changes. Mild convex to the left curvature of the lumbar spine. Fluid / peritoneum: No significant free fluid. No free intraperitoneal air identified. IMPRESSION 1. No acute intracranial abnormality identified. 2. No acute osseous abnormality identified in the cervical spine. 3. No acute abnormality identified in the chest, abdomen, or pelvis. Physical Exam: GENERAL: The patient is a well-developed, well-nourished, in no apparent dis tress. Alert and oriented x3. VITAL SIGNS: Reviewed HEENT: Neck supple. Nares dry. LUNGS: Clear to auscultation. No crackles or wheezes are heard. HEART: Regular rate and rhythm, no appreciable gallops, rubs, murmurs or extra heart sounds ABDOMEN: Soft, nontender, and nondistended. Positive bowel sounds. No hepatosplenomegaly was noted. EXTREMITIES: Patient with brace to the right lower extremity. Improvement in dry skin noted. NEUROLOGIC: The patient is oriented to person, place and time. Strength and sensation are grossly intact. Face is symmetric. SKIN: Normal color, turgor and temperature. No ulcerations or rashes noted. Impression: Syncope likely related to dehydration, weakness with acute renal injury and UTI with urine culture positive for Gram-negative rods Debility, weakness secondary to morbid obesity and musculoskeletal pain Urinary incontinence Morbid obesity, BMI 48.6 Plan Syncope likely related to dehydration, weakness with acute renal injury and UTI with urine culture positive for Gram-negative rods: Patient has done well. Continue to encourage oral intake. Patient with positive UTI. Will start IV Rocephin. Await culture and sensitivity. Continue with physical therapy. Social work arranging for skilled placement. Anticipate approval for skilled placement tomorrow. I will turn the service over to the hospitalist team tomorrow. I will go plan of care with him. Debility, weakness secondary to morbid obesity and musculoskeletal pain: Patient uses a power lift chair at home. She also has a walker. Mobility is limited. She recently started water therapy. In current condition patient is high risk for fall and injury. Continue physical therapy. Patient desires to go to skilled placement. I would highly recommend this at this time. Social work in progress to place patient at a skilled facility. Urinary incontinence: Continue with medication. Morbid obesity, BMI 48.6: Continue with lifestyle modification education. Code Status: Patient is DNR DVT prophylaxis: Lovenox Advanced Care Planning-30 minutes: Plan of care for the patient's discharge was discussed in detail with the patient. Patient desires skilled placement. Social work working to get patient to skilled facility. Patient is a DO NOT RESUSCITATE. Time Spent Managing Pts Care (In Minutes): 55
[2020-12-11 06:20] LABS: Absolute Lymphocytes (CBC) 1.1 K/uL (0.7-4.9); Basophils % 0.6 % (0-1.3); Hematocrit 33.4 % (36.0-45.0); Lymphocytes % 19.1 % (15.3-44.8); MPV 8.9 fL (7.6-11.3)
[2020-12-11 06:32] LABS: ALT/SGPT 44 U/L (12-78); AST/SGOT 27 U/L (15-37); Albumin 2.7 g/dL (3.4-5.0); Alkaline Phosphatase 44 U/L (45-117); BUN Blood Urea Nitrogen 14 mg/dL (7-18); Bicarbonate 30 mmol/L (21-32); Bilirubin Total 0.4 mg/dL (0.2-1.0); Glucose Level 88 mg/dL (74-106); Magnesium 1.9 mg/dL (1.8-2.4); Potassium 3.9 mmol/L (3.5-5.1); Protein, Total 5.8 g/dL (6.4-8.2); Sodium Level 141 mmol/L (136-145)
[2020-12-11] MEDS ORDERED: POTASSIUM CL SA 10 MEQ TAB PO ONE (09:00)
[2020-12-11] MEDS: ENOXAPARIN 40 MG/0.4 ML SQ SCH (09:00)
[2020-12-11] MEDS: OXYBUTYNIN ER 5 MG TAB PO SCH (09:22)
[2020-12-11] MEDS: CEFTRIAXONE/SWI 1gm 1 GM/10 ML SYR IVP SCH (16:00)
[2020-12-11] MEDS: ACETAMINOPHEN 500 MG TAB PO PRN (16:57)
[2020-12-12 04:54] LABS: BUN Blood Urea Nitrogen 15 mg/dL (7-18); Bicarbonate 31 mmol/L (21-32); Glucose Level 93 mg/dL (74-106); Potassium 4.4 mmol/L (3.5-5.1); Sodium Level 141 mmol/L (136-145)
[2020-12-12] MEDS: TRAMADOL HCL 50 MG TAB PO PRN ×2 (06:24→22:48)
--- NOTE | 2020-12-12 08:16 | ECHO ---
HEIGHT: 5 ft 4 in WEIGHT: 283 lb 0 oz DATE OF STUDY: 12/09/[address]: Wilman Henley NP 2-DIMENSIONAL: YES M.MODE: YES DOPPLER: YES COLOR FLOW: YES TDS: YES PORTABLE: NO DEFINITY: NO BUBBLE STUDY: NO DIAGNOSIS: SYNCOPE CARDIAC HISTORY: CATHERIZATION: NO SURGERY: NO PROSTHETIC VALVE: NO PACEMAKER: NO MEASUREMENTS (cm) DIASTOLIC (NORMALS) SYSTOLIC (NORMALS) IVSd 0.8 (0.6-1.2) LA Diam 3.1 (1.9-4.0) LVEF 55-60% LVIDd 4.8 (3.5-5.7) LVIDs 2.9 (2.0-3.5) %FS 38% LVPWd 0.9 (0.6-1.2) Ao Diam 2.6 (2.0-3.7) 2 DIMENSIONAL ASSESSMENT: RIGHT ATRIUM: NORMAL LEFT ATRIUM: NORMAL RIGHT VENTRICLE: NORMAL LEFT VENTRICLE: NORMAL TRICUSPID VALVE: NORMAL MITRAL VALVE: NORMAL PULMONIC VALVE: NORMAL AORTIC VALVE: NORMAL PERICARDIAL EFFUSION: TRACE AORTIC ROOT: NORMAL LEFT VENTRICULAR WALL MOTION: NORMAL DOPPLER/COLOR FLOW: NORMAL COMMENTS: NORMAL LEFT VENTRICULAR EJECTION FRACTION 55-60%. NORMAL WALL MOTION. TRACE TRICUSPID REGURGITATION. TRACE PERICARDIAL EFFUSION. TECHNOLOGIST: Jami PRYOR
[2020-12-12] MEDS: OXYBUTYNIN ER 5 MG TAB PO SCH (09:41)
[2020-12-12] MEDS: CEFTRIAXONE/SWI 1gm 1 GM/10 ML SYR IVP SCH (09:41)
[2020-12-12] MEDS: ENOXAPARIN 40 MG/0.4 ML SQ SCH (09:42)
--- NOTE | 2020-12-12 17:10 | P.PN ---
Subjective Date of Service: 12/12/20 Patient is still feeling pretty weak. She has has a lot of issues with falling. Continue working with physical therapy. Awaiting for transfer to shelter facility. Review of Systems 10-point ROS is otherwise unremarkable Physical Examination - Vital Signs Temperature: 98.4 F Blood Pressure: 140/65 Pulse: 61 Respirations: 19 Pulse Ox (%): 94 - Physical Exam General: Alert, In no apparent distress, Oriented x3 Respiratory: Clear to auscultation bilaterally, Normal air movement Cardiovascular: Regular rate/rhythm, Normal S1 S2, No murmurs Gastrointestinal: Normal bowel sounds, Soft and benign, Non-distended, No tenderness Musculoskeletal: No clubbing, No swelling, No tenderness Integumentary: No rashes Neurological: Normal tone, Sensation intact, Cranial nerves 3-12 intact, Abnormal strength - Studies Microbiology Data (last 24 hrs): 12/10/20 01:15 Clean Catch Urine [place] Count - Final BETWEEN 10,000 & 100,000 CFU/ML 12/10/20 01:15 Clean Catch Urine - Final Morganella Morganii Medications List Reviewed: Yes Assessment & Plan - Problems (Diagnosis) (1) Generalized weakness Current Visit: Yes Status: Acute (2) Status post fall Current Visit: Yes Status: Acute (3) H/O: hypertension Current Visit: Yes Status: Acute (4) H/O hyperlipidemia Current Visit: Yes Status: Acute (5) H/O deep venous thrombosis Current Visit: Yes Status: Acute - Plan Plan 1. Cultures Revealed Morganella morganii; will continue with Levaquin 2. Continue with physical therapy evaluation 3. Out of bed and ambulate 4. Arrange for shelter facility placement 5. Detrol for urinary incontinence 6. GI and DVT prophylaxis Discharge Plan: Correction Plan to discharge in: Greater than 2 days - Advance Directives Does patient have a Living Will: No Does patient have a Durable POA for Healthcare: No - Code Status/Comfort Care Code Status Assessed: Yes Code Status: Full Code Critical Care: No Time Spent Managing PTS Care (In Minutes): 35
[2020-12-13] MEDS: TRAMADOL HCL 50 MG TAB PO PRN (10:56)
[2020-12-13] MEDS: OXYBUTYNIN ER 5 MG TAB PO SCH (10:56)
[2020-12-13] MEDS: ACETAMINOPHEN 500 MG TAB PO PRN (10:58)
[2020-12-13] MEDS: ENOXAPARIN 40 MG/0.4 ML SQ SCH (10:58)
[2020-12-13] MEDS: CEFTRIAXONE/SWI 1gm 1 GM/10 ML SYR IVP SCH (10:58)
[2020-12-13] MEDS: DRISDOL (VITAMIN D=ERGOCALCIFEROL) 50000 UNIT CAP PO SCH (14:00)
[2020-12-14] MEDS: TRAMADOL HCL 50 MG TAB PO PRN ×3 (06:25→18:41)
[2020-12-14] MEDS: CEFTRIAXONE/SWI 1gm 1 GM/10 ML SYR IVP SCH (07:46)
[2020-12-14] MEDS: ENOXAPARIN 40 MG/0.4 ML SQ SCH (07:46)
[2020-12-14] MEDS: OXYBUTYNIN ER 5 MG TAB PO SCH (07:46)
[2020-12-15] MEDS: TRAMADOL HCL 50 MG TAB PO PRN (00:44)
[2020-12-15] MEDS: OXYBUTYNIN ER 5 MG TAB PO SCH (08:40)
[2020-12-15] MEDS: ENOXAPARIN 40 MG/0.4 ML SQ SCH (08:40)
[2020-12-15] MEDS: CEFTRIAXONE/SWI 1gm 1 GM/10 ML SYR IVP SCH (10:03)
[2020-12-15] MEDS: TRAMADOL 37.5mg/APAP 325mg PER TAB PO PRN (14:56)
[2020-12-15] MEDS: DIPHENHYDRAMINE 25 MG TAB/CAP PO PRN (14:56)
[2020-12-16] MEDS: TRAMADOL 37.5mg/APAP 325mg PER TAB PO PRN ×3 (02:02→18:46)
--- NOTE | 2020-12-16 03:55 | P.PN ---
Date of Service: 12/13/20 Subjective Spoke with insurance company with patient and they stated that if patient is working with physical therapy then they will approve long-term facility. Spoke with patient regarding this. She stated that she did work with physical therapy. Will try to get patient out of bed later today as well. Review of Systems 10-point ROS is otherwise unremarkable Physical Examination - Vital Signs Review - Physical Exam General: Alert, In no apparent distress, Oriented x3 Respiratory: Clear to auscultation bilaterally, Normal air movement Cardiovascular: Regular rate/rhythm, Normal S1 S2, No murmurs Gastrointestinal: Normal bowel sounds, Soft and benign, Non-distended, No tenderness Musculoskeletal: No clubbing, No swelling, No tenderness Integumentary: No rashes Neurological: Normal tone, Sensation intact, Cranial nerves 3-12 intact, Abnormal strength Assessment & Plan - Problems (Diagnosis) (1) Generalized weakness Current Visit: Yes Status: Acute (2) Status post fall Current Visit: Yes Status: Acute (3) H/O: hypertension Current Visit: Yes Status: Acute (4) H/O hyperlipidemia Current Visit: Yes Status: Acute (5) H/O deep venous thrombosis Current Visit: Yes Status: Acute - Plan Continue with plan of care as mentioned below: 1. Cultures Revealed Morganella morganii; will continue with Levaquin 2. Continue with physical therapy evaluation; encourage patient to continue the do more with therapy 3. Out of bed and ambulate 4. Arrange for long-term facility placement 5. Detrol for urinary incontinence 6. GI and DVT prophylaxis
--- NOTE | 2020-12-16 03:57 | P.PN ---
Date of Service: 12/14/20 Subjective Even though shows company stated that they would approve the patient if patient was working with therapy they decided to not approve the patient. Unfortunately patient does not have any way to get around. Insurance company has pretty much may very difficult for patient to improve. Will encourage physical therapy try to assist patient in ambulating. Strict blood pressure control Review of Systems 10-point ROS is otherwise unremarkable Physical Examination - Vital Signs Review - Physical Exam General: Alert, In no apparent distress, Oriented x3 Respiratory: Clear bilaterally Cardiovascular: Regular rate rhythm with no murmurs Gastrointestinal: Normal bowel sounds, Soft and benign, Non-distended, No tenderness Musculoskeletal: No clubbing, No swelling, No tenderness Neurological: Normal tone, Sensation intact, Cranial nerves 3-12 intact, Abnormal strength Assessment & Plan - Problems (Diagnosis) (1) Generalized weakness Current Visit: Yes Status: Acute (2) Status post fall Current Visit: Yes Status: Acute (3) H/O: hypertension Current Visit: Yes Status: Acute (4) H/O hyperlipidemia Current Visit: Yes Status: Acute (5) H/O deep venous thrombosis Current Visit: Yes Status: Acute - Plan Continue with plan of care as mentioned below: 1. Continue oral antibiotic therapy 2. Continue with physical therapy 3. Out of bed and ambulate 4. Arrange for senior living facility placement; will need to speak with insurance company 5. Detrol for urinary incontinence 6. GI and DVT prophylaxis
--- NOTE | 2020-12-16 03:58 | P.PN ---
Date of Service: 12/15/20 Subjective Patient continues to improve. Patient is working with physical therapy; patient is getting out of bed and ambulating with therapy. She is also kind out of bed with the nursing staff and walk to the bedside commode. Unfortunately, the insurance company did not approve her insurance day. Review of Systems 10-point ROS is otherwise unremarkable Physical Examination - Vital Signs Review - Physical Exam General: Alert, In no apparent distress, Oriented x3; morbidly obese Respiratory: Clear bilaterally Cardiovascular: Regular rate rhythm with no murmurs Gastrointestinal: Normal bowel sounds, Soft and benign, Non-distended, No tenderness Musculoskeletal: No clubbing, minimal swelling bilateral, No tenderness Neurological: Normal tone, Sensation intact, Cranial nerves 3-12 intact, Abnormal strength Assessment & Plan - Problems (Diagnosis) (1) Generalized weakness secondary to UTI Current Visit: Yes Status: Acute (2) Status post fall with syncopal event Current Visit: Yes Status: Acute (3) H/O: hypertension Current Visit: Yes Status: Acute (4) H/O hyperlipidemia Current Visit: Yes Status: Acute (5) H/O deep venous thrombosis Current Visit: Yes Status: Acute - Plan Continue with plan of care as mentioned below: 1. Continue antibiotic therapy; patient with 10-100,000cfu with Morganella morganii. Change to oral antibiotics 2. Continue with physical therapy 3. Out of bed and ambulate along with nursing staff 4. Arrange for [facility] facility placement; will need to speak with insurance [employer] once again. Patient working with physical therapy. 5. Detrol for urinary incontinence 6. GI and DVT prophylaxis
[2020-12-16] MEDS: ENOXAPARIN 40 MG/0.4 ML SQ SCH (09:42)
[2020-12-16] MEDS: CEFTRIAXONE/SWI 1gm 1 GM/10 ML SYR IVP SCH (09:42)
[2020-12-16] MEDS: DIPHENHYDRAMINE 25 MG TAB/CAP PO PRN (09:43)
[2020-12-16] MEDS: OXYBUTYNIN ER 5 MG TAB PO SCH (09:43)
[2020-12-17] MEDS: OXYBUTYNIN ER 5 MG TAB PO SCH (09:42)
[2020-12-17] MEDS: ENOXAPARIN 40 MG/0.4 ML SQ SCH (09:42)
[2020-12-17] MEDS: TRAMADOL 37.5mg/APAP 325mg PER TAB PO PRN ×3 (09:44→21:50)
[2020-12-17] MEDS: CEFTRIAXONE/SWI 1gm 1 GM/10 ML SYR IVP SCH (11:29)
[2020-12-18] MEDS: TRAMADOL 37.5mg/APAP 325mg PER TAB PO PRN ×2 (05:06→22:33)
[2020-12-18] MEDS: CEFTRIAXONE/SWI 1gm 1 GM/10 ML SYR IVP SCH (09:18)
[2020-12-18] MEDS: OXYBUTYNIN ER 5 MG TAB PO SCH (09:18)
[2020-12-18] MEDS: ENOXAPARIN 40 MG/0.4 ML SQ SCH (09:18)
--- NOTE | 2020-12-18 23:34 | P.PN ---
Date of Service: 12/16/20 Subjective manager intranet want us to attempt another residential. Will try another nursing facility. Patient participating with physical therapy. Review of Systems 10-point ROS is otherwise unremarkable Physical Examination - Vital Signs Review - Physical Exam General: Alert, In no apparent distress, Oriented x3; morbidly obese Respiratory: Clear bilaterally Cardiovascular: Regular rate rhythm with no murmurs Gastrointestinal: Normal bowel sounds, Soft and benign, Non-distended, No tenderness Musculoskeletal: No clubbing, minimal swelling bilateral, No tenderness Neurological: Normal tone, Sensation intact, Cranial nerves 3-12 intact, Abnormal strength Assessment & Plan - Problems (Diagnosis) (1) Generalized weakness secondary to UTI Current Visit: Yes Status: Acute (2) Status post fall with syncopal event Current Visit: Yes Status: Acute (3) H/O: hypertension Current Visit: Yes Status: Acute (4) H/O hyperlipidemia Current Visit: Yes Status: Acute (5) H/O deep venous thrombosis Current Visit: Yes Status: Acute - Plan Continue with plan of care as mentioned below: 1. Dc antibiotics in 48 hr 2. Continue with physical therapy 3. Out of bed and ambulate along with nursing staff; out of bed to a chair with meals 4. Arrange for detention facility placement; will need to speak with insurance company once again. Patient working with physical therapy. 5. Detrol for urinary incontinence 6. GI and DVT prophylaxis
--- NOTE | 2020-12-18 23:37 | P.PN ---
Date of Service: 12/17/20 Subjective Patient with no new changes; continuing out of bed and ambulating. We need to wait for arrangements at a prison facility placement. Patient is trying to get to prison facility at [facility]. She has family in the [place], [place] area in that would be her 2nd choice. 12/16: manager net want us to attempt another half-way. Will try another nursing facility. Patient participating with physical therapy. Review of Systems 10-point ROS is otherwise unremarkable Physical Examination - Vital Signs Review - Physical Exam General: Alert, In no apparent distress, Oriented x3; morbidly obese Respiratory: Clear bilaterally Cardiovascular: Regular rate rhythm with no murmurs Gastrointestinal: Normal bowel sounds, Soft and benign, Non-distended, No tenderness Musculoskeletal: No clubbing, minimal swelling bilateral, No tenderness Neurological: Normal tone, Sensation intact, Cranial nerves 3-12 intact, Abnormal strength Assessment & Plan - Problems (Diagnosis) (1) Generalized weakness secondary to UTI Current Visit: Yes Status: Acute (2) Status post fall with syncopal event Current Visit: Yes Status: Acute (3) H/O: hypertension Current Visit: Yes Status: Acute (4) H/O hyperlipidemia Current Visit: Yes Status: Acute (5) H/O deep venous thrombosis Current Visit: Yes Status: Acute - Plan Continue with plan of care as mentioned below: 1. Dc antibiotics in 48 hr 2. Continue with physical therapy 3. Out of bed and ambulate along with nursing staff; out of bed to a chair with meals 4. Arrange for prison facility placement; will need to speak with insurance company once again. Patient working with physical therapy. 5. Detrol for urinary incontinence 6. GI and DVT prophylaxis
--- NOTE | 2020-12-18 23:43 | P.PN ---
Date of Service: 12/18/20 Subjective Patient doing well with some complaint of pain in the lower extremity. Rule out DVT. Patient with a history of prior DVT. On DVT prophylaxis. Still would benefit from alf facility placement. Will discuss with [employer] 12/17: Patient with no new changes; continuing out of bed and ambulating. We need to wait for arrangements at a alf facility placement. Patient is trying to get to alf facility at [facility]. She has family in the [place], [place] area in that would be her 2nd choice. 12/16: facility service manager want us to attempt another fpc. Will try another nursing facility. Patient participating with physical therapy. Review of Systems 10-point ROS is otherwise unremarkable Physical Examination - Vital Signs Review - Physical Exam General: Alert, In no apparent distress, Oriented x3; morbidly obese Respiratory: Clear bilaterally Cardiovascular: Regular rate rhythm with no murmurs Gastrointestinal: Normal bowel sounds, Soft and benign, Non-distended, No tenderness Musculoskeletal: No clubbing, minimal swelling bilateral, No tenderness Neurological: Normal tone, Sensation intact, Cranial nerves 3-12 intact, Abnormal strength Assessment & Plan - Problems (Diagnosis) (1) Generalized weakness secondary to UTI/myopathy Current Visit: Yes Status: Acute (2) Status post fall with syncopal event Current Visit: Yes Status: Acute (3) H/O: hypertension Current Visit: Yes Status: Acute (4) H/O hyperlipidemia Current Visit: Yes Status: Acute (5) H/O deep venous thrombosis Current Visit: Yes Status: Acute - Plan Continue with plan of care as mentioned below: 1. We have stopped antibiotic therapy. Urinary tract infection should be resolved. 2. Continue with physical therapy 3. Out of bed and ambulate along with nursing staff; out of bed to a chair with meals 4. Awaiting for alf facility placement 5. Detrol for urinary incontinence 6. Strict blood pressure control 7. Telemetry and syncope workup unremarkable 8. Ultrasound of the lower extremity pending 9. GI and DVT prophylaxis
[2020-12-19] MEDS: DIPHENHYDRAMINE 25 MG TAB/CAP PO PRN ×2 (00:15→20:43)
[2020-12-19 05:53] LABS: Absolute Lymphocytes (CBC) 1.7 K/uL (0.7-4.9); Hematocrit 34.6 % (36.0-45.0); Lymphocytes % 23.6 % (15.3-44.8); MPV 8.2 fL (7.6-11.3); RBC Red Blood Cell Count 3.97 M/uL (3.86-4.86)
--- NOTE | 2020-12-19 05:58 | P.PN ---
Subjective Date of Service: 12/19/20 Primary Care Provider: Dr. Goldsmith Chief Complaint: Syncope, weakness Subjective: Other (Ddimer elevated. Venous Doppler negative. Patient with history of DVT. Currently on Lovenox. Patient working with physical therapy. Patient willing to go to a skilled facility.) Physical Examination - Vital Signs Temperature: 97.3 F Blood Pressure: 117/64 Pulse: 70 Respirations: 18 Pulse Ox (%): 94 - Studies Medications List Reviewed: Yes Assessment & Plan Discharge Plan: Other (Skilled facility) Plan to discharge in: 24 Hours Physician Review Additional Text: Renal US: COMPARISON: No comparisons FINDINGS: Both kidneys are normal in size, shape and echotexture. The right kidney measures 10.4 x 5.1 x 4.1 cm. No hydronephrosis, focal mass or perinephric fluid. The left kidney measures 10.0 x 5.8 x 4.2 cm. No hydronephrosis, focal mass or perinephric fluid. 13 mm parapelvic benign cyst on the left. The urinary bladder is incompletely distended without gross abnormality seen. IMPRESSION: Small left renal cyst, otherwise negative examination. Carotid Doppler: FINDINGS: Normal high resistance waveforms are noted in both external carotid arteries. The common carotid arteries and internal carotid arteries show normal low resistance waveforms. No significant plaque formation is seen. Peak systolic and end diastolic velocity values and the ICA/CCA ratios are in the non-hemodynamically significant range. Antegrade flow seen in both vertebral arteries. IMPRESSION: No significant atherosclerotic changes noted. No evidence of a hemodynamically significant stenosis. CT scan: COMPARISON: CT of the chest, abdomen, and pelvis from June 30, 2018. CT of the head from March 02, 2016. FINDINGS: CT Head: There is diffuse age-appropriate atrophy seen throughout the brain parenchyma. Mild periventricular white matter changes are seen to be present and there is mild ex vacuo dilatation of the ventricular system. There is no intra-axial or extra-axial bleed. There is no mass or mass effect. Partially calcified osteoma versus mucus retention cyst with high density mucus in the left frontal sinus. The remaining visualized paranasal sinuses and mastoid air cells are patent. No fracture is identified. CT cervical spine: No acute osseous abnormality identified. Vertebral body height and alignment are maintained. No atlantodental interval widening. Atlantoaxial alignment is maintained. C2-C3: No significant central canal or neuroforaminal narrowing. C3-C4: Mild left-sided neuroforaminal stenosis due to facet hypertrophy. No significant central canal or right neuroforaminal narrowing. C4-C5: No significant central canal or neuroforaminal narrowing. C5-C6: Moderate disc height loss. Posterior disc osteophyte complex results in borderline narrowing of the central canal to 0.8 cm AP. No significant neuroforaminal narrowing. C6-C7: Posterior disc osteophyte complex with prominent disc height loss and borderline narrowing of the central canal to 0.8 to 0.9 cm AP. No significant neuroforaminal narrowing. Paraspinal soft tissues: Trace calcific atherosclerosis. CT chest, abdomen, and pelvis: Lungs and pleura: No pulmonary consolidation. No pleural effusion. No pneumothorax. Mediastinum and neck: No mediastinal lymphadenopathy identified by CT size criteria. Unremarkable appearance of the thyroid gland. Cardiac: No cardiomegaly or pericardial effusion. No thoracic aortic aneurysm or dissection. Hepatobiliary: No concerning hepatic lesion identified. The hepatic and portal veins are patent. The gallbladder is surgically absent. Similar appearance of the mildly prominent common bile duct, likely postsurgical and age-related. Pancreas: Unremarkable. Spleen: Unremarkable. Gastrointestinal: No evidence of bowel obstruction or perienteric inflammation. The appendix is normal. Mild left colonic diverticulosis. Small amount of fecal material in the colon. Adrenals: No abnormality identified in either adrenal gland. Renal: Thin nonobstructive calculus in the inferior pole of the left kidney measures 0.6 x 0.2 cm. No concerning parenchymal abnormality in either kidney. No hydronephrosis or right-sided urolithiasis. Bladder/Reproductive: Unremarkable appearance of the urinary bladder by CT technique. Small calcified uterine fibroids Vascular/Lymphatics: No lymphadenopathy identified by CT size criteria. Abdominal aorta is normal in caliber. Mild calcific atherosclerosis. The major visceral vessels are patent. Infrarenal IVC filter in place. Musculoskeletal: No acute osseous abnormality or concerning osseous lesion identified. Spinal degenerative changes. Mild convex to the left curvature of the lumbar spine. Fluid / peritoneum: No significant free fluid. No free intraperitoneal air identified. IMPRESSION 1. No acute intracranial abnormality identified. 2. No acute osseous abnormality identified in the cervical spine. 3. No acute abnormality identified in the chest, abdomen, or pelvis. Physical Exam: GENERAL: The patient is a well-developed, well-nourished, in no apparent dist ress. Alert and oriented x3. VITAL SIGNS: Reviewed HEENT: Neck supple. Nares dry. LUNGS: Clear to auscultation. No crackles or wheezes are heard. HEART: Regular rate and rhythm, no appreciable gallops, rubs, murmurs or extra heart sounds ABDOMEN: Soft, nontender, and nondistended. Positive bowel sounds. No hepatosplenomegaly was noted. EXTREMITIES: Patient with brace to the right lower extremity. Improvement in dry skin noted. NEUROLOGIC: The patient is oriented to person, place and time. Strength and sensation are grossly intact. Face is symmetric. SKIN: Normal color, turgor and temperature. No ulcerations or rashes noted. Impression: Syncope likely related to dehydration, weakness with acute renal injury and UTI with urine culture positive for Morganella Debility, weakness secondary to morbid obesity and musculoskeletal pain Urinary incontinence Morbid obesity, BMI 48.6 Plan Syncope likely related to dehydration, weakness with acute renal injury and UTI with urine culture positive for Morganella: Patient has done well. Patient completed UTI treatment. Patient continues to work with physical therapy. Patient desires to go to a skilled facility to continue rehabilitation. Social work working on placement. Anticipate approval for skilled placement. Debility, weakness secondary to morbid obesity and musculoskeletal pain: Patient uses a power lift chair at home. She also has a walker. Mobility is limited. She recently started water therapy. In current condition patient is high risk for fall and injury. Continue physical therapy. Patient desires to go to skilled placement. I would highly recommend this at this time. Social work in progress to place patient at a skilled facility. Urinary incontinence: Continue with medication. Morbid obesity, BMI 48.6: Continue with lifestyle modification education. Code Status: Patient is DNR DVT prophylaxis: Lovenox Advanced Care Planning-30 minutes: Plan of care for the patient's discharge was discussed in detail with the patient. Patient desires skilled placement. Social work working to get patient to skilled facility. Patient is a DO NOT RESUSCITATE. Time Spent Managing Pts Care (In Minutes): 55
[2020-12-19 06:07] LABS: BUN Blood Urea Nitrogen 17 mg/dL (7-18); Bicarbonate 31 mmol/L (21-32); Glucose Level 92 mg/dL (74-106); Magnesium 2.2 mg/dL (1.8-2.4); Sodium Level 139 mmol/L (136-145)
--- NOTE | 2020-12-19 09:28 | RAD REPORT ---
EXAM DESCRIPTION: US - Extrem Venous W Compress Zen - 12/19/2020 9:12 am CLINICAL HISTORY: Lower extremity swelling with a history of DVT COMPARISON: None. TECHNIQUE: Real-time sonographic evaluation of the bilateral lower extremity common femoral, superfi cial femoral, popliteal and posterior tibial veins was performed. FINDINGS: Normal compressibility, flow augmentation, phasic flow and spontaneous flow are identified in the left and right lower extremity common femoral, superficial femoral, popliteal and posterior t ibial veins. No intraluminal filling defects seen. IMPRESSION: No DVT in either lower extremity.
[2020-12-19] MEDS: ENOXAPARIN 40 MG/0.4 ML SQ SCH (10:07)
[2020-12-19] MEDS: OXYBUTYNIN ER 5 MG TAB PO SCH (10:07)
[2020-12-19] MEDS: TRAMADOL 37.5mg/APAP 325mg PER TAB PO PRN ×2 (10:07→20:43)
[2020-12-20] MEDS: TRAMADOL 37.5mg/APAP 325mg PER TAB PO PRN ×4 (03:57→21:19)
--- NOTE | 2020-12-20 05:52 | P.PN ---
Subjective Date of Service: 12/20/20 Primary Care Provider: Dr. Goldsmith Chief Complaint: Syncope, weakness Subjective: Other (Patient doing well. Patient working with physical therapy.) Physical Examination - Vital Signs Temperature: 97.9 F Blood Pressure: 115/62 Pulse: 62 Respirations: 18 Pulse Ox (%): 95 - Studies Medications List Reviewed: Yes Assessment & Plan Discharge Plan: Other (long-term facility) Plan to discharge in: 24 Hours Physician Review Additional Text: Renal US: COMPARISON: No comparisons FINDINGS: Both kidneys are normal in size, shape and echotexture. The right kidney measures 10.4 x 5.1 x 4.1 cm. No hydronephrosis, focal mass or perinephric fluid. The left kidney measures 10.0 x 5.8 x 4.2 cm. No hydronephrosis, focal mass or perinephric fluid. 13 mm parapelvic benign cyst on the left. The urinary bladder is incompletely distended without gross abnormality seen. IMPRESSION: Small left renal cyst, otherwise negative examination. Carotid Doppler: FINDINGS: Normal high resistance waveforms are noted in both external carotid arteries. The common carotid arteries and internal carotid arteries show normal low resistance waveforms. No significant plaque formation is seen. Peak systolic and end diastolic velocity values and the ICA/CCA ratios are in the non-hemodynamically signific ant range. Antegrade flow seen in both vertebral arteries. IMPRESSION: No significant atherosclerotic changes noted. No evidence of a hemodynamically significant stenosis. CT scan: COMPARISON: CT of the chest, abdomen, and pelvis from June 30, 2018. CT of the head from March 02, 2016. FINDINGS: CT Head: There is diffuse age-appropriate atrophy seen throughout the brain parenchyma. Mild periventricular white matter changes are seen to be present and there is mild ex vacuo dilatation of the ventricular system. There is no intra-axial or extra-axial bleed. There is no mass or mass effect. Partially calcified osteoma versus mucus retention cyst with high density mucus in the left frontal sinus. The remaining visualized paranasal sinuses and mastoid air cells are patent. No fracture is identified. CT cervical spine: No acute osseous abnormality identified. Vertebral body height and alignment are maintained. No atlantodental interval widening. Atlantoaxial alignment is maintained. C2-C3: No significant central canal or neuroforaminal narrowing. C3-C4: Mild left-sided neuroforaminal stenosis due to facet hypertrophy. No significant central canal or right neuroforaminal narrowing. C4-C5: No significant central canal or neuroforaminal narrowing. C5-C6: Moderate disc height loss. Posterior disc osteophyte complex results in borderline narrowing of the central canal to 0.8 cm AP. No significant neuroforaminal narrowing. C6-C7: Posterior disc osteophyte complex with prominent disc height loss and borderline narrowing of the central canal to 0.8 to 0.9 cm AP. No significant neuroforaminal narrowing. Paraspinal soft tissues: Trace calcific atherosclerosis. CT chest, abdomen, and pelvis: Lungs and pleura: No pulmonary consolidation. No pleural effusion. No pneumothorax. Mediastinum and neck: No mediastinal lymphadenopathy identified by CT size criteria. Unremarkable appearance of the thyroid gland. Cardiac: No cardiomegaly or pericardial effusion. No thoracic aortic aneurysm or dissection. Hepatobiliary: No concerning hepatic lesion identified. The hepatic and portal veins are patent. The gallbladder is surgically absent. Similar appearance of the mildly prominent common bile duct, likely postsurgical and age-related. Pancreas: Unremarkable. Spleen: Unremarkable. Gastrointestinal: No evidence of bowel obstruction or perienteric inflammation. The appendix is normal. Mild left colonic diverticulosis. Small amount of fecal material in the colon. Adrenals: No abnormality identified in either adrenal gland. Renal: Thin nonobstructive calculus in the inferior pole of the left kidney measures 0.6 x 0.2 cm. No concerning parenchymal abnormality in either kidney. No hydronephrosis or right-sided urolithiasis. Bladder/Reproductive: Unremarkable appearance of the urinary bladder by CT technique. Small calcified uterine fibroids Vascular/Lymphatics: No lymphadenopathy identified by CT size criteria. Abdominal aorta is normal in caliber. Mild calcific atherosclerosis. The major visceral vessels are patent. Infrarenal IVC filter in place. Musculoskeletal: No acute osseous abnormality or concerning osseous lesion identified. Spinal degenerative changes. Mild convex to the left curvature of the lumbar spine. Fluid / peritoneum: No significant free fluid. No free intraperitoneal air identified. IMPRESSION 1. No acute intracranial abnormality identified. 2. No acute osseous abnormality identified in the cervical spine. 3. No acute abnormality identified in the chest, abdomen, or pelvis. Physical Exam: GENERAL: The patient is a well-developed, well-nourished, in no apparent distress. Alert and oriented x3. VITAL SIGNS: Reviewed HEENT: Neck supple. Nares dry. LUNGS: Clear to auscultation. No crackles or wheezes are heard. HEART: Regular rate and rhythm, no appreciable gallops, rubs, murmurs or extra heart sounds ABDOMEN: Soft, nontender, and nondistended. Positive bowel sounds. No hepat osplenomegaly was noted. EXTREMITIES: Patient with brace to the right lower extremity. Improvement in dry skin noted. NEUROLOGIC: The patient is oriented to person, place and time. Strength and sensation are grossly intact. Face is symmetric. SKIN: Normal color, turgor and temperature. No ulcerations or rashes noted. Impression: Syncope likely related to dehydration, weakness with acute renal injury and UTI with urine culture positive for Morganella Debility, weakness secondary to morbid obesity and musculoskeletal pain Urinary incontinence Morbid obesity, BMI 48.6 Plan Syncope likely related to dehydration, weakness with acute renal injury and UTI with urine culture positive for Morganella: Patient has done well. Patient completed UTI treatment. Patient continues to work with physical therapy. Patient desires to go to a skilled facility to continue rehabilitation. Patient is also considering a skilled facility near [facility] in [facility]. That is where she was living before. Will discuss with manager social media to consider skilled placement near [facility]. Currently awaiting skilled approval. Anticipate approval soon. Debility, weakness secondary to morbid obesity and musculoskeletal pain: Patient uses a power lift chair at home. She also has a walker. Mobility is limited. She recently started water therapy. In current condition patient is high risk for fall and injury. Continue physical therapy. Patient desires to go to skilled placement. Social work to continue to work on skilled placement. Patient prefers facility near [place] or [facility] lives and where she is from. Will discuss with manager social media. Urinary incontinence: Continue with medication. Morbid obesity, BMI 48.6: Continue with lifestyle modification education. Code Status: Patient is DNR DVT prophylaxis: Lovenox Advanced Care Planning-30 minutes: Plan of care for the patient's discharge was discussed in detail with the patient. Patient desires skilled placement. She is considering skilled placement near family in [facility]. Will discuss with manager social media about this possibility or facility nearby. Patient is a DO NOT RESUSCITATE. Time Spent Managing Pts Care (In Minutes): 55
[2020-12-20] MEDS: ENOXAPARIN 40 MG/0.4 ML SQ SCH (09:00)
[2020-12-20] MEDS: DRISDOL (VITAMIN D=ERGOCALCIFEROL) 50000 UNIT CAP PO SCH (09:08)
[2020-12-20] MEDS: OXYBUTYNIN ER 5 MG TAB PO SCH (09:08)
[2020-12-20] MEDS: DIPHENHYDRAMINE 25 MG TAB/CAP PO PRN (21:19)
--- NOTE | 2020-12-21 05:52 | P.PN ---
Subjective Date of Service: 12/21/20 Primary Care Provider: Dr. Goldsmith Chief Complaint: Syncope, weakness Subjective: Other (Doing well. She walked 5 times yesterday.) Physical Examination - Vital Signs Temperature: 97.9 F Blood Pressure: 117/59 Pulse: 67 Respirations: 18 Pulse Ox (%): 95 - Studies Medications List Reviewed: Yes Assessment & Plan Discharge Plan: Other Plan to discharge in: 24 Hours Physician Review Additional Text: Renal US: COMPARISON: No comparisons FINDINGS: Both kidneys are normal in size, shape and echotexture. The right kidney measures 10.4 x 5.1 x 4.1 cm. No hydronephrosis, focal mass or perinephric fluid. The left kidney measures 10.0 x 5.8 x 4.2 cm. No hydronephrosis, focal mass or perinephric fluid. 13 mm parapelvic benign cyst on the left. The urinary bladder is incompletely distended without gross abnormality seen. IMPRESSION: Small left renal cyst, otherwise negative examination. Carotid Doppler: FINDINGS: Normal high resistance waveforms are noted in both external carotid arteries. The common carotid arteries and internal carotid arteries show normal low resistance waveforms. No significant plaque formation is seen. Peak systolic and end diastolic velocity values and the ICA/CCA ratios are in the non-hemodynamically significant range. Antegrade flow seen in both vertebral arteries. IMPRESSION: No significant atherosclerotic changes noted. No evidence of a hemodynamically significant stenosis. CT scan: COMPARISON: CT of the chest, abdomen, and pelvis from June 30, 2018. CT of the head from March 02, 2016. FINDINGS: CT Head: There is diffuse age-appropriate atrophy seen throughout the brain parenchyma. Mild periventricular white matter changes are seen to be present and there is mild ex vacuo dilatation of the ventricular system. There is no intra-axial or extra-axial bleed. There is no mass or mass effect. Partially calcified osteoma versus mucus retention cyst with high density mucus in the left frontal sinus. The remaining visualized paranasal sinuses and mastoid air cells are patent. No fracture is identified. CT cervical spine: No acute osseous abnormality identified. Vertebral body height and alignment are maintained. No atlantodental interval widening. Atlantoaxial alignment is maintained. C2-C3: No significant central canal or neuroforaminal narrowing. C3-C4: Mild left-sided neuroforaminal stenosis due to facet hypertrophy. No significant central canal or right neuroforaminal narrowing. C4-C5: No significant central canal or neuroforaminal narrowing. C5-C6: Moderate disc height loss. Posterior disc osteophyte complex results in borderline narrowing of the central canal to 0.8 cm AP. No significant n euroforaminal narrowing. C6-C7: Posterior disc osteophyte complex with prominent disc height loss and borderline narrowing of the central canal to 0.8 to 0.9 cm AP. No significant neuroforaminal narrowing. Paraspinal soft tissues: Trace calcific atherosclerosis. CT chest, abdomen, and pelvis: Lungs and pleura: No pulmonary consolidation. No pleural effusion. No pneumothorax. Mediastinum and neck: No mediastinal lymphadenopathy identified by CT size criteria. Unremarkable appearance of the thyroid gland. Cardiac: No cardiomegaly or pericardial effusion. No thoracic aortic aneurysm or dissection. Hepatobiliary: No concerning hepatic lesion identified. The hepatic and portal veins are patent. The gallbladder is surgically absent. Similar appearance of the mildly prominent common bile duct, likely postsurgical and age-related. Pancreas: Unremarkable. Spleen: Unremarkable. Gastrointestinal: No evidence of bowel obstruction or perienteric inflammation. The appendix is normal. Mild left colonic diverticulosis. Small amount of fecal material in the colon. Adrenals: No abnormality identified in either adrenal gland. Renal: Thin nonobstructive calculus in the inferior pole of the left kidney measures 0.6 x 0.2 cm. No concerning parenchymal abnormality in either kidney. No hydronephrosis or right-sided urolithiasis. Bladder/Reproductive: Unremarkable appearance of the urinary bladder by CT technique. Small calcified uterine fibroids Vascular/Lymphatics: No lymphadenopathy identified by CT size criteria. Abdominal aorta is normal in caliber. Mild calcific atherosclerosis. The major visceral vessels are patent. Infrarenal IVC filter in place. Musculoskeletal: No acute osseous abnormality or concerning osseous lesion identified. Spinal degenerative changes. Mild convex to the left curvature of the lumbar spine. Fluid / peritoneum: No significant free fluid. No free intraperitoneal air identified. IMPRESSION 1. No acute intracranial abnormality identified. 2. No acute osseous abnormality identified in the cervical spine. 3. No acute abnormality identified in the chest, abdomen, or pelvis. Physical Exam: GENERAL: Doing well. Slept well last night. Alert and oriented x3. VITAL SIGNS: Reviewed HEENT: Neck supple. LUNGS: Clear to auscultation. No crackles or wheezes are heard. HEART: Regular rate and rhythm, no appreciable gallops, rubs, murmurs or extra heart sounds ABDOMEN: Soft, nontender, and nondistended. Positive bowel sounds. No hepatosplenomegaly was noted. EXTREMITIES: Patient with brace to the right lower extremity. NEUROLOGIC: The patient is oriented to person, place and time. Strength and sensation are grossly intact. Face is symmetric. SKIN: Normal color, turgor and temperature. No ulcerations or rashes noted. Impression: Syncope likely related to dehydration, weakness with acute renal injury and UTI with urine culture positive for Morganella Debility, weakness secondary to morbid obesity and musculoskeletal pain Urinary incontinence Morbid obesity, BMI 48.6 Plan Syncope likely related to dehydration, weakness with acute renal injury and UTI with urine culture positive for Morganella: Patient has done well. She reports that she is doing better with PT. She walked 5 tiems yesterday. Patient has completed UTI treatment. Patient continues to work with physical therapy. Patient desires to go to a skilled facility to continue rehabilitation. Patient is also considering a skilled facility near family in [facility]. That is where she was living before. Will discuss with social research assistant to consider skilled placement near family. Currently awaiting skilled approval. Anticipate approval soon. Debility, weakness secondary to morbid obesity and musculoskeletal pain: Patient uses a power lift chair at home. She also has a walker. Mobility is limited. She recently started water therapy. In current condition patient is high risk for fall and injury. Continue physical therapy. Patient desires to go to skilled placement. Social work to continue to work on skilled placement. Patient prefers facility near [place] or [facility] lives and where she is from. Will discuss with social research assistant. Urinary incontinence: Continue with medication. Morbid obesity, BMI 48.6: Continue with lifestyle modification education. Code Status: Patient is DNR DVT prophylaxis: Lovenox Advanced Care Planning-30 minutes: Plan of care for the patient's discharge was discussed in detail with the patient. Patient desires skilled placement. She is considering skilled placement near family in [facility]. Will discuss with social research assistant about this possibility or facility nearby. Patient is a DO NOT RESUSCITATE. Time Spent Managing Pts Care (In Minutes): 55
[2020-12-21] MEDS: ENOXAPARIN 40 MG/0.4 ML SQ SCH (08:15)
[2020-12-21] MEDS: TRAMADOL 37.5mg/APAP 325mg PER TAB PO PRN ×3 (08:15→20:46)
[2020-12-21] MEDS: OXYBUTYNIN ER 5 MG TAB PO SCH (08:16)
[2020-12-21 09:43] VITALS: O2SAT 95
[2020-12-21] MEDS: DIPHENHYDRAMINE 25 MG TAB/CAP PO PRN ×2 (14:33→20:47)
--- NOTE | 2020-12-22 05:58 | P.PN ---
Subjective Date of Service: 12/22/20 Primary Care Provider: Dr. Goldsmith Chief Complaint: Syncope, weakness Subjective: Improving, Doing well Physical Examination - Vital Signs Temperature: 97.6 F Blood Pressure: 124/61 Pulse: 56 Respirations: 18 Pulse Ox (%): 94 - Studies Medications List Reviewed: Yes Assessment & Plan Discharge Plan: Other ([facility] facility) Plan to discharge in: 24 Hours Physician Review Additional Text: Renal US: COMPARISON: No comparisons FINDINGS: Both kidneys are normal in size, shape and echotexture. The right kidney measures 10.4 x 5.1 x 4.1 cm. No hydronephrosis, focal mass or perinephric fluid. The left kidney measures 10.0 x 5.8 x 4.2 cm. No hydronephrosis, focal mass or perinephric fluid. 13 mm parapelvic benign cyst on the left. The urinary bladder is incompletely distended without gross abnormality seen. IMPRESSION: Small left renal cyst, otherwise negative examination. Carotid Doppler: FINDINGS: Normal high resistance waveforms are noted in both external carotid arteries. The common carotid arteries and internal carotid arteries show normal low resistance waveforms. No significant plaque formation is seen. Peak systolic and end diastolic velocity values and the ICA/CCA ratios are in the non-hemodynamically significant range. Antegrade flow seen in both vertebral arteries. IMPRESSION: No significant atherosclerotic changes noted. No evidence of a hemodynamically significant stenosis. CT scan: COMPARISON: CT of the chest, abdomen, and pelvis from June 30, 2018. CT of the head from March 02, 2016. FINDINGS: CT Head: There is diffuse age-appropriate atrophy seen throughout the brain parenchyma. Mild periventricular white matter changes are seen to be present and there is mild ex vacuo dilatation of the ventricular system. There is no intra-axial or extra-axial bleed. There is no mass or mass effect. Partially calcified osteoma versus mucus retention cyst with high density mucus in the left frontal sinus. The remaining visualized paranasal sinuses and mastoid air cells are patent. No fracture is identified. CT cervical spine: No acute osseous abnormality identified. Vertebral body height and alignment are maintained. No atlantodental interval widening. Atlantoaxial alignment is maintained. C2-C3: No significant central canal or neuroforaminal narrowing. C3-C4: Mild left-sided neuroforaminal stenosis due to facet hypertrophy. No significant central canal or right neuroforaminal narrowing. C4-C5: No significant central canal or neuroforaminal narrowing. C5-C6: Moderate disc height loss. Posterior disc osteophyte complex results in borderline narrowing of the central canal to 0.8 cm AP. No significant ne uroforaminal narrowing. C6-C7: Posterior disc osteophyte complex with prominent disc height loss and borderline narrowing of the central canal to 0.8 to 0.9 cm AP. No significant neuroforaminal narrowing. Paraspinal soft tissues: Trace calcific atherosclerosis. CT chest, abdomen, and pelvis: Lungs and pleura: No pulmonary consolidation. No pleural effusion. No pneumothorax. Mediastinum and neck: No mediastinal lymphadenopathy identified by CT size criteria. Unremarkable appearance of the thyroid gland. Cardiac: No cardiomegaly or pericardial effusion. No thoracic aortic aneurysm or dissection. Hepatobiliary: No concerning hepatic lesion identified. The hepatic and portal veins are patent. The gallbladder is surgically absent. Similar appearance of the mildly prominent common bile duct, likely postsurgical and age-related. Pancreas: Unremarkable. Spleen: Unremarkable. Gastrointestinal: No evidence of bowel obstruction or perienteric inflammation. The appendix is normal. Mild left colonic diverticulosis. Small amount of fecal material in the colon. Adrenals: No abnormality identified in either adrenal gland. Renal: Thin nonobstructive calculus in the inferior pole of the left kidney measures 0.6 x 0.2 cm. No concerning parenchymal abnormality in either kidney. No hydronephrosis or right-sided urolithiasis. Bladder/Reproductive: Unremarkable appearance of the urinary bladder by CT technique. Small calcified uterine fibroids Vascular/Lymphatics: No lymphadenopathy identified by CT size criteria. Abdominal aorta is normal in caliber. Mild calcific atherosclerosis. The major visceral vessels are patent. Infrarenal IVC filter in place. Musculoskeletal: No acute osseous abnormality or concerning osseous lesion identified. Spinal degenerative changes. Mild convex to the left curvature of the lumbar spine. Fluid / peritoneum: No significant free fluid. No free intraperitoneal air identified. IMPRESSION 1. No acute intracranial abnormality identified. 2. No acute osseous abnormality identified in the cervical spine. 3. No acute abnormality identified in the chest, abdomen, or pelvis. Physical Exam: GENERAL: Doing well. Slept well last night. Alert and oriented x3. VITAL SIGNS: Reviewed HEENT: Neck supple. LUNGS: Clear to auscultation. No crackles or wheezes are heard. HEART: Regular rate and rhythm, no appreciable gallops, rubs, murmurs or extra heart sounds ABDOMEN: Soft, nontender, and nondistended. Positive bowel sounds. No hepatosplenomegaly was noted. EXTREMITIES: Patient with brace to the right lower extremity. NEUROLOGIC: The patient is oriented to person, place and time. Strength and sensation are grossly intact. Face is symmetric. SKIN: Normal color, turgor and temperature. No ulcerations or rashes noted. Impression: Syncope likely related to dehydration, weakness with acute renal injury and UTI with urine culture positive for Morganella Debility, weakness secondary to morbid obesity and musculoskeletal pain Urinary incontinence Morbid obesity, BMI 48.6 Plan Syncope likely related to dehydration, weakness with acute renal injury and UTI with urine culture positive for Morganella: Patient has done well. She reports that she is doing better with PT. She walking better. Patient has completed UTI treatment. Patient continues to work with physical therapy. Patient desires to go to a skilled facility to continue rehabilitation. Patient is also considering a skilled facility near family in [facility]. That is where she was living before. Will discuss with perinatal social worker to consider skilled placement near family. Currently awaiting skilled approval. Anticipate approval soon. Debility, weakness secondary to morbid obesity and musculoskeletal pain: Patient uses a power lift chair at home. She also has a walker. Mobility is limited. She recently started water therapy. In current condition patient is high risk for fall and injury. Continue physical therapy. Patient desires to go to skilled placement. Social work to continue to work on skilled placement. Patient prefers facility near [place] or [facility] lives and where she is from. Will discuss with perinatal social worker. Urinary incontinence: Continue with medication. Morbid obesity, BMI 48.6: Continue with lifestyle modification education. Code Status: Patient is DNR DVT prophylaxis: Lovenox Advanced Care Planning-30 minutes: Plan of care for the patient's discharge was discussed in detail with the patient. Patient desires skilled placement. She is considering skilled placement near family in [facility]. Will discuss with perinatal social worker about this possibility or facility nearby. Patient is a DO NOT RESUSCITATE. Time Spent Managing Pts Care (In Minutes): 55
[2020-12-22] MEDS: OXYBUTYNIN ER 5 MG TAB PO SCH (08:02)
[2020-12-22] MEDS: ENOXAPARIN 40 MG/0.4 ML SQ SCH (08:03)
[2020-12-22] MEDS: TRAMADOL 37.5mg/APAP 325mg PER TAB PO PRN (08:06)
--- NOTE | 2020-12-22 09:24 | P.DS ---
Admission Date: 12/10/20 Discharge Date: 12/22/20 Primary Care Provider: Dr. Goldsmith Disposition: TRANSFER TO SNF - MEDICAL Discharge Condition: GOOD Reason for Admission: Syncope, weakness Consultations: none Procedures: Venous doppler: FINDINGS: Normal compressibility, flow augmentation, phasic flow and spontaneous flow are identified in the left and right lower extremity common femoral, superficial femoral, popliteal and posterior tibial veins. No intraluminal filling defects seen. IMPRESSION: No DVT in either lower extremity. Renal US: COMPARISON: No comparisons FINDINGS: Both kidneys are normal in size, shape and echotexture. The right kidney measures 10.4 x 5.1 x 4.1 cm. No hydronephrosis, focal mass or perinephric fluid. The left kidney measures 10.0 x 5.8 x 4.2 cm. No hydronephrosis, focal mass or perinephric fluid. 13 mm parapelvic benign cyst on the left. The urinary bladder is incompletely distended without gross abnormality seen. IMPRESSION: Small left renal cyst, otherwise negative examination. Carotid Doppler: FINDINGS: Normal high resistance waveforms are noted in both external carotid arteries. The common carotid arteries and internal carotid arteries show normal low resistance waveforms. No significant plaque formation is seen. Peak systolic and end diastolic [place] values and the ICA/CCA ratios are in the non-hemodynamically significant range. Antegrade flow seen in both vertebral arteries. IMPRESSION: No significant atherosclerotic changes noted. No evidence of a hemodynamically significant stenosis. CT scan: COMPARISON: CT of the chest, abdomen, and pelvis from June 30, 2018. CT of the head from March 02, 2016. FINDINGS: CT Head: There is diffuse age-appropriate atrophy seen throughout the brain parenchyma. Mild periventricular white matter changes are seen to be present and there is mild ex vacuo dilatation of the ventricular system. There is no intra-axial or extra-axial bleed. There is no mass or mass effect. Partially calcified osteoma versus mucus retention cyst with high density mucus in the left frontal sinus. The remaining visualized paranasal sinuses and mastoid air cells are patent. No fracture is identified. CT cervical spine: No acute osseous abnormality identified. Vertebral body height and alignment are maintained. No atlantodental interval widening. Atlantoaxial alignment is maintained. C2-C3: No significant central canal or neuroforaminal narrowing. C3-C4: Mild left-sided neuroforaminal stenosis due to facet hypertrophy. No significant central canal or right neuroforaminal narrowing. C4-C5: No significant central canal or neuroforaminal narrowing. C5-C6: Moderate disc height loss. Posterior disc osteophyte complex results in borderline narrowing of the central canal to 0.8 cm AP. No significant neuroforaminal narrowing. C6-C7: Posterior disc osteophyte complex with prominent disc height loss and borderline narrowing of the central canal to 0.8 to 0.9 cm AP. No significant neuroforaminal narrowing. Paraspinal soft tissues: Trace calcific atherosclerosis. CT chest, abdomen, and pelvis: Lungs and pleura: No pulmonary consolidation. No pleural effusion. No pneumothorax. Mediastinum and neck: No mediastinal lymphadenopathy identified by CT size criteria. Unremarkable appearance of the thyroid gland. Cardiac: No cardiomegaly or pericardial effusion. No thoracic aortic aneurysm or dissection. Hepatobiliary: No concerning hepatic lesion identified. The hepatic and portal veins are patent. The gallbladder is surgically absent. Similar appearance of the mildly prominent common bile duct, likely postsurgical and age-related. Pancreas: Unremarkable. Spleen: Unremarkable. Gastrointestinal: No evidence of bowel obstruction or perienteric inflammation. The appendix is normal. Mild left colonic diverticulosis. Small amount of fecal material in the colon. Adrenals: No abnormality identified in either adrenal gland. Renal: Thin nonobstructive calculus in the inferior pole of the left kidney measures 0.6 x 0.2 cm. No concerning parenchymal abnormality in either kidney. N o hydronephrosis or right-sided urolithiasis. Bladder/Reproductive: Unremarkable appearance of the urinary bladder by CT technique. Small calcified uterine fibroids Vascular/Lymphatics: No lymphadenopathy identified by CT size criteria. Abdominal aorta is normal in caliber. Mild calcific atherosclerosis. The major visceral vessels are patent. Infrarenal IVC filter in place. Musculoskeletal: No acute osseous abnormality or concerning osseous lesion identified. Spinal degenerative changes. Mild convex to the left curvature of the lumbar spine. Fluid / peritoneum: No significant free fluid. No free intraperitoneal air identified. IMPRESSION 1. No acute intracranial abnormality identified. 2. No acute osseous abnormality identified in the cervical spine. 3. No acute abnormality identified in the chest, abdomen, or pelvis. Medical problem list: Syncope likely related to dehydration, weakness with acute renal injury and UTI with urine culture positive for Morganella Debility, weakness secondary to morbid obesity and musculoskeletal pain Urinary incontinence Morbid obesity, BMI 48.6 Brief History of Present Illness: 75-year-old female with history of anemia, DVT, hypertension, hyperlipidemia, obesity presents emergency department after syncopal episode. Patient currently lives at home alone after being approximately 5 years prior, patient reports over the course of the last month she has had increasing weakness, patient reports that she stays in her recliner all the time, reports that she is only able to shower once every couple of weeks, reports not always being able to make it to the bathroom and having to urinate next to her recliner at home, patient reports not being able to bear weight. Patient is having physical therapy approximately 2 0.5 hr away from our house twice a week with hydrotherapy but she is not getting significantly better, patient reports that when she got back to her house today and she got up for elevator which she has to take to get to her house she had a syncopal episode, she reports getting dizzy and then losing consciousness and waking up on the floor after an unknown amount of time. Patient was evaluated in the emergency department, labs significant for renal insufficiency creatinine 1.35 GFR 38, this is worse than her previous renal function last measured in 2018. Initial x-rays unremarkable. Patient admitted for further evaluation and treatment. Hospital Course: Patient presented with weakness, syncope. This is likely from dehydration and acute renal injury complicated with UTI. The patient was admitted for further evaluation and treatment. Urine culture was positive for Morganella. Patient was treated for the infection. Renal function improved. Patient was evaluated for skilled placement. Patient was initially denied but finally approved after re-evaluation. At home she uses a power lift chair. She is using a walker for mobility. At discharge she will go to a skilled facility in the [place], [place]. This will be close to family. Patient reports there has been some discussion with the patient and son about the possibility of long-term placement. She would rather come back locally. This will need to be considered after skilled placement. At discharge patient stable. Patient will continue with her current medications: Oxybutynin 15 mg daily, tramadol 50 mg 1 pill twice daily and vitamin-D every 7 days. Patient with history of urinary incontinence. As mentioned above patient will continue with oxybutynin 15 mg daily. UTI prevention provided. Patient with morbid obesity, and musculoskeletal pain. At discharge she will continue with tramadol 50 mg 1 pill twice daily as needed for pain. Patient will continue with physical therapy at skilled facility. Fall precautions in place. Patient uses walker at home along with power lift chair. Vital Signs/Physical Exam: Temp Pulse Resp BP Pulse Ox 97.6 F 56 18 124/61 94 12/22/20 09:21 12/22/20 09:21 12/22/20 09:21 12/22/20 09:21 12/22/20 09:21 General: Alert, In no apparent distress, Oriented x3, Cooperative HEENT: Atraumatic Neck: Supple Respiratory: Clear to auscultation bilaterally, Normal air movement Cardiovascular: Normal pulses, Regular rate/rhythm Gastrointestinal: Normal bowel sounds, No masses, No rebound, No guarding Musculoskeletal: No erythema, No tenderness, No warmth Integumentary: No tenderness/swelling Neurological: Normal speech, Normal strength at 5/5 x4 extr, Normal tone, Normal affect Laboratory Data at Discharge: WBC 7.20 K/uL (4.3-10.9) D 12/19/20 05:38 Hgb 11.5 g/dL (12.0-15.0) L 12/19/20 05:38 Hct 34.6 % (36.0-45.0) L 12/19/20 05:38 Plt Count 262 K/uL (152-406) D 12/19/20 05:38 PT 12.4 SECONDS (9.5-12.5) 12/08/20 21:00 INR 1.08 12/08/20 21:00 Sodium 139 mmol/L (136-145) 12/19/20 05:38 Potassium 4.0 mmol/L (3.5-5.1) 12/19/20 05:38 BUN 17 mg/dL (7-18) 12/19/20 05:38 Creatinine 0.46 mg/dL (0.55-1.3) L 12/19/20 05:38 Glucose 92 mg/dL (74-106) 12/19/20 05:38 Magnesium 2.2 mg/dL (1.8-2.4) 12/19/20 05:38 Total Bilirubin 0.4 mg/dL (0.2-1.0) 12/11/20 05:58 AST 27 U/L (15-37) 12/11/20 05:58 ALT 44 U/L (12-78) 12/11/20 05:58 Alkaline Phosphatase 44 U/L (45-117) L 12/11/20 05:58 Troponin I < 0.02 ng/mL (0.0-0.045) 12/09/20 10:05 Triglycerides 52 mg/dL (<150) 12/09/20 03:27 Cholesterol 164 mg/dL (<200) 12/09/20 03:27 HDL Cholesterol 56 mg/dL (40-60) 12/09/20 03:27 Cholesterol/HDL Ratio 2.93 12/09/20 03:27 Home Medications: Cholecalciferol (Vitamin D3) [Vitamin D3] 1,250 mcg PO EVERY 7TH DAY 12/09/20 Oxybutynin Chloride [Oxybutynin Chloride ER] 15 mg PO DAILY 12/09/20 traMADol HCL [Ultram*] 50 mg PO BID 12/09/20 Physician Discharge Instructions: Patient presented with weakness, syncope. This is likely from dehydration and acute renal injury complicated with UTI. The patient was admitted for further evaluation and treatment. Urine culture was positive for Morganella. Patient was treated for the infection. Renal function improved. Patient was evaluated for skilled placement. Patient was initially denied but finally approved after re-evaluation. At home she uses a power lift chair. She is using a walker for mobility. At discharge she will go to a skilled facility in the [place], [place]. This will be close to family. Patient reports there has been some discussion with the patient and son about the possibility of long-term placement. She would rather come back locally. This will need to be considered after skilled placement. At discharge patient stable. Patient will continue with her current medications: Oxybutynin 15 mg daily, tramadol 50 mg 1 pill twice daily and vitamin-D every 7 days. Patient with history of urinary incontinence. As mentioned above patient will continue with oxybutynin 15 mg daily. UTI prevention provided. Patient with morbid obesity, and musculoskeletal pain. At discharge she will continue with tramadol 50 mg 1 pill twice daily as needed for pain. Patient will continue with physical therapy at skilled facility. Fall precautions in place. Patient uses walker at home along with power lift chair. Diet: AHA Activity: Fall precautions Followup: NONE,NONE [Primary Care Provider] - Time spent managing pt's care (in minutes): 55
[2020-12-22 13:37] VITALS: BP 141/63; TEMP 98.1
== END 2020-12-22 12:15 | DRG 690 ==
LOC: ER 20:15 → 2ND 12-09 00:07 → OBSVTOIN 12-10 16:21
PROVIDERS: ADMIT Family Medicine; ATTEND Family Medicine
DX: N39.0 Urinary tract infection, site not specified (principal); N17.9 Acute kidney failure, unspecified; Z68.42 Body mass index [BMI] 45.0-49.9, adult; E86.0 Dehydration; B96.89 Other specified bacterial agents as the cause of diseases classified elsewhere; E66.01 Morbid (severe) obesity due to excess calories; R53.81 Other malaise; M79.18 Myalgia, other site; R32 Unspecified urinary incontinence; I10 Essential (primary) hypertension; E78.5 Hyperlipidemia, unspecified; Z20.822 Contact with and (suspected) exposure to COVID-19; Z66 Do not resuscitate; Z86.718 Personal history of other venous thrombosis and embolism
CPT/HCPCS: 36415; 70450; 71045; 71260; 72125; 74177; 76770; 80048; 80053; 80061; 80076; 81003; 81015; 83735; 83880; 84439; 84443; 84484; 85025; 85379; 85610; 87077; 87086; 87088; 87186; 93005; 93306; 93880; 93970; 96374; 96375; 97110; 97116; 97161; 97530; 99285; G0378; J0696; J1650; J2405; J7030; Q9967; U0003

== ENCOUNTER 2021-08-26 22:40 | Emergency (ER) | payer OTHER ==
--- OUTSIDE RECORDS SUMMARY | 2021-08-26 22:43 | XMS REPORT | Continuity of Care Document ---
:1945 Author Organization [facility] t Address [address] [place] [address] Care Team Providers Name Role Phone Luiza Oviedo MD Primary Care Physician Marilyn Goldsmith Attending Clinician Unavailable Elizabeth Attending Clinician Unavailable LUIZA OVIEDO Attending Clinician Unavailable Luiza Oviedo MD Attending Clinician Nisreen Jack Attending Clinician Nisreen CEDILLO Attending Clinician Unavailable Payers Payer Name Policy Type Policy Number Effective Date Expiration Date S mesfin [facility] [id number] 2021 CLASSIC NO PREMIUM 00:00:[address] [place] [id number] 2019spring 00:00:00 Problems Condition Condition Condition Status Onset Resolution Last Treating Co mments Source Name Details Category Date Date Treatment Clinician Date No known No known Disease Kelse y active active Seybold problems problems Morbid Morbid Problem Active [facility] ([facility] [...] [facility] left [facility] Primary Primary Diagnosis [facility]oarth[facility] Marry kes - itis of itis of [facility] right knee right knee l [facility] Bilateral Bilateral Problem Active [facility] primary primary [facility] osteoarthr osteoarthr Me moria itis of itis of l knee knee [facility] Pain in Pain in Problem Active [facility] joint [facility] of [facility] - left knee left knee Allan brenda l [facility] Allergies, Adverse Reactions, Alerts Allergy Allergy Status Severity Reaction(s) Onset Inactive Treating Comm ents Source Name Type Date Date Clinician NO KNOWN Drug Active [facility] ALLERGIE [facility] Social History Social Habit Start Date Stop Date Quantity Comments Source Sex Ass[birth year] At [birth year] Christiane Se ybold 00:00:00 00:00:00 Smoking Status Start Date Stop Date Source Never smoked tobacco Christiane Seyb old Medications Ordered Filled Start Stop Current Ordering Indication Dosage Frequency Signature Comments Components Source Medication Medication Date Date Medication? Clinician (SIG) Name Name No known No No known Kelse y medications 2-08 medication Se ybold 16:52: s 02 Tolterodine Tolterodine Yes Raymond [address] [facility] Tartrate Tartrate 8-08 [facility] 00:[facility]: [facility] 00 l [facility] Gabapentin Gabapentin Yes Raymond [address] [facility] Metronidazo Metronidazo Yes Raymond [address] [facility] le le [facility] applicatio [facility] n to [facility] affected l area [facility] Phentermine Phentermine Yes Raymond [address] [facility] HCl HCl [facility] atorvastati atorvastati Yes Raymond [address] [facility] n n [place] by mouth [facility] - at bedtime [facility] Trospium Trospium Yes Raymond [address] Chloride Chloride [facility] at bedtime [facility] on an [facility] empty l stomach [facility] Pantoprazol Pantoprazol Yes Raymond [address] [facility] e Sodium e Sodium [facility] Cholecalcif Cholecalcif Yes Raymond as [facility] roma roma [facility] directed [facility] Topiramate Topiramate Yes Raymond [address] [facility] Meloxicam Meloxicam Yes Raymond [address] [facility] Tramadol [...] [address] [facility] HCl HCl [facility] Immunizations Ordered Immunization Filled Immunization Date Status Commen ts Source Name Name Pneumococcal Vaccine, 2021-03-20 Completed Cirilo Moffett Polysaccharide 00:00:00 Covid-19 Vaccine 2020-05-19 Completed Christiane hurst ([place]) 00:00:00 Seasonal Trivalent 2020-05-09 Completed Christiane Moffett Influenza Vaccine, 00:00:00 Adjuvanted, Preserve Pneumococcal Vaccine, 2020-05-09 Completed Cirilo Moffett Conjugate 13 00:00:00 Tdap- (Boostrix, 2016-03-14 Completed Christiane hurst Adacel) 00:00:00 Procedures This patient has no known procedures. Encounters Start End Encounter Admission Attending Care Care Encounter Source Date/Time Date/Time Type Type Clinicians Facility Department ID 2021-07-26 Outpatient Ashleigh Goldsmith [facility] [id number] [facility] [address] 13:24:59 [id number] [facility] 2021-07-26 Outpatient Ashleigh Goldsmith [facility] [id number] [facility] 13:16:18 [id number] [facility] 2021-07-26 Outpatient Ashleigh Goldsmith [facility] [id number] [facility] [address] 12:41:28 [id number] [facility] 2021-07-26 Outpatient Goldsmith, Na [facility]LMLC [facility] [id number] [facility] 12:40:42 [id number] [facility] 2021-07-26 Outpatient Goldsmith, Na [facility]LMLC [facility] [id number] [facility] [address] 12:29:53 [id number] [facility] 2021-07-26 Outpatient Goldsmith, Na [facility]LMLC [facility] [id number] [facility] [address] 12:29:06 [id number] [facility] 2021-07-26 Outpatient Goldsmith, Na [facility]LMLC [facility] [id number] [facility] [address] 12:23:58 [id number] [facility] 2021-07-26 Outpatient Goldsmith, Na [facility]LMLC [facility] [id number] [facility] [address] 12:02:36 [id number] [facility] 2021-07-26 Outpatient Goldsmith, Na [facility]LMLC [facility] [id number] [facility] 12:02:08 [id number] [facility] 2021-07-26 Outpatient Elizabeth, [facility]LMLC [facility] [id number] 11:25:25 Dinorah [id number] [facility] 2021-08-18 2021-08-18 Outpatient CHRISTIANE OVIEDO [id number] Christiane 00:00:00 00:00:00 TAYLOR Conradol d 2021-08-17 2021-08-17 Outpatient CHRISTIANE OVIEDO [id number] Christiane 00:00:00 00:00:00 TAYLOR Seybol d 2021-08-10 2021-08-10 Outpatient CHRISTIANE OVIEDO [id number] Christiane 00:00:00 00:00:00 TAYLOR Seybol d 2021-08-08 2021-08-08 Telemedici Zi Oviedo [id number] Christiane 15:00:00 15:35:03 ne Taylor Casillas [id number] Se nohemi Espinoza [id number] 2021-03-29 2021-03-29 Outpatient [facility] [id number] [facility] 2021-03-29 2021-03-29 Outpatient [facility] [id number] [facility] 2021-03-24 2021-03-24 Outpatient [facility] [id number] [facility] 2021-02-02 2021-02-02 Outpatient [facility] [id number] [facility] 2021-02-01 2021-02-01 Outpatient [facility] [id number] [facility] 2021-01-16 2021-01-16 Outpatient [facility] [id number] [facility] 2020-12-15 2020-12-15 Outpatient [facility] [id number] [facility] 2020-11-21 2020-11-21 Outpatient [facility] [id number] [facility] 2020-11-08 2020-11-08 Outpatient [facility] [id number] [facility] 2020-10-27 2020-10-27 Outpatient [facility] [id number] [facility] 2020-10-18 2020-10-18 Outpatient [facility] [id number] [facility] 2020-10-04 2020-10-04 Outpatient [facility] [id number] [facility] 2020-10-04 2020-10-04 Outpatient [facility] [id number] [facility] 2020-09-16 2020-09-16 Outpatient [facility] [id number] [facility] 2020-09-13 2020-09-13 Outpatient [facility] [id number] [facility] 2020-09-08 2020-09-08 Outpatient [facility] [id number] [facility] 2020-09-06 2020-09-06 Outpatient [facility] [id number] [facility] 2020-09-01 2020-09-01 Outpatient [facility] [id number] [facility] 2020-08-25 2020-08-25 Outpatient [facility] [id number] [facility] 2020-08-18 2020-08-18 Outpatient [facility] [id number] [facility] 2020-08-09 2020-08-09 Outpatient [facility] [id number] [facility] 2020-08-02 2020-08-02 Outpatient [facility] [id number] [facility] 2020-07-26 2020-07-26 Outpatient [facility] [id number] [facility] 2020-07-26 2020-07-26 Outpatient [facility] [id number] [facility] 2020-07-22 2020-07-22 Outpatient [facility] [id number] [facility] 2020-07-21 2020-07-21 Outpatient [facility] [id number] [facility] 2020-07-15 2020-07-15 Outpatient [facility] [id number] [facility] 2020-07-15 2020-07-15 Outpatient [facility] [id number] [facility] 2020-07-07 2020-07-07 Outpatient [facility] [id number] [facility] 2020-06-17 2020-06-17 Outpatient [facility] [id number] [facility] 2020-06-01 2020-06-01 Outpatient [facility] [id number] [facility] 2020-06-01 2020-06-01 Outpatient [facility] [id number] [facility] 2020-05-23 2020-05-23 Outpatient [facility] [id number] [facility] 2020-05-18 2020-05-18 Outpatient [facility] [id number] [facility] 2020-05-09 2020-05-09 Outpatient [facility] [id number] [facility] 2019-12-07 2019[facility]12-07 [facility] [id number] 13:39:00 13:39:00 t [facility] - [facility] 2019-09-08 2019-09-08 [facility] [id number] 13:35:17 13:59:34 [place] [id number] Surgical [id number] Specialti [id number] es 198 [place] 2019-09-08 2019-09-08 Outpatient Isaac CEDILLO [facility] [id number] Univers 13:30:00 13:30:00 [facility] 2019-09-08 2019-09-08 Outpatient Isaac [facility]ILLO [facility] [id number] Univers 10:30:00 10:30:00 [facility] 2019-09-08 2019-09-08 Outpatient Isaac CEDILLO [facility] [id number] Univers 10:30:00 10:30:00 [facility] 2019-09-01 2019-09-01 Outpatient Isaac CEDILLO [facility] [id number] Univers 14:15:00 14:15:00 [facility] 2019-09-01 2019-09-01 [facility] [id number] Univers 14:15:00 14:15:00 [facility] 2019-08-25 2019-08-25 [facility] [id number] Univers 14:00:00 14:00:00 [facility] [id number] [facility] 2019-08-25 2019-08-25 [facility] [id number] Univers 14:00:00 14:00:00 [facility] 2019-02-05 2019-02-05 [facility] [id number] 10:30:00 10:30:00 [facility] Results This patient has no known results.
[2021-08-27 01:26] LABS: Urine Blood 2+ (Negative); Urine Glucose Negative (Negative); Urine Protein 1+ (Negative); Urine Specific Gravity >=1.030 (1.005-1.030)
--- NOTE | 2021-08-27 01:29 | ER ---
[facility]urse's Notes [facility] Name: Marty Farias Age: 76 yrs Sex: Female : 1945 Arrival Date: 08/26/2021 Time: 22:50 Bed 18 Private MD: Diagnosis: Pain in right hip;UTI/ Urinary tract infection, site not specified Presentation: 08/26 22:50 Chief complaint: Patient states: right hip pain EMS states: Right hip pain, difficulty sf1 walking, denies fall started 2 days ago. Coronavirus screen: Vaccine status: Patient reports receiving the 2nd dose of the covid vaccine. Client denies travel out of the [place] in the last 14 days. Ebola Screen: Patient negative for fever greater than or equal to 101.5 degrees Fahrenheit, and additional compatible Ebola Virus Disease symptoms Patient denies exposure to infectious person. Patient denies travel to an Ebola-affected area in the 21 days before illness onset. Initial Sepsis Screen: Does the patient meet any 2 criteria? No. Patient's initial sepsis screen is negative. Does the patient have a suspected source of infection? No. Patient's initial sepsis screen is negative. Risk Assessment: Do you want to hurt yourself or someone else? Patient reports no desire to harm self or others. Onset of symptoms was August 24, 2021. 22:50 Method Of Arrival: EMS: [facility] sf1 22:50 Acuity: LESIA 4 sf1 Triage Assessment: 22:52 General: Appears in no apparent distress. obese, Behavior is calm, cooperative, sf1 appropriate for age. Pain: Complains of pain in right hip. Historical: - Home Meds: 22:52 meloxicam Oral [Active]; Oxybutynin Chloride Oral [Active]; Tramadol Oral [Active]; sf1 - PMHx: 22:52 Anemia; Chronic pain; DVT; sf1 - Immunization history:: Flu vaccine is up to date. - Social history:: Smoking status: Patient denies any tobacco usage or history of. Patient/guardian denies using alcohol, street drugs. Screenin:57 Abuse screen: Denies threats or abuse. Nutritional screening: No deficits noted. sf1 Tuberculosis screening: No symptoms or risk factors identified. Fall Risk Fall in past 12 months (25 points). Secondary diagnosis (15 points) No IV (0 pts). Ambulatory Aid- Crutches/Cane/Walker (15 pts). Gait- Weak (10 pts.). Mental Status- Oriented to own ability (0 pts). Vital Signs: 22:50 BP 150 / 68; Pulse 73; Resp 20; Temp 97.9(O); Pulse Ox 95% on R/A; Weight 123.38 kg; sf1 Height 5 ft. 4 in. (162.56 cm); 22:50 Body Mass Index 46.69 (123.38 kg, 162.56 cm) sf1 ED Course: 22:50 Patient arrived in ED. mw2 22:50 Precious Salgado RN is Primary Nurse. sf1 22:52 Triage completed. sf1 22:52 Skylar Casillas FNP-C [facility] kb 22:53 Luis Johnston MD is Attending Physician. kb 23:50 Femur Right XRAY In Process Unspecified. EDMS 08/27 00:12 CT Pelvis wo Cont In Process Unspecified. EDMS 02:40 Arm band placed on right wrist. sf1 02:40 No provider procedures requiring assistance completed. Patient did not have IV access sf1 during this emergency room visit. 02:41 Bed in low position. Call light in reach. Side rails up X2. sf1 Administered Medications: 02:13 Drug: Augmentin (Amoxicillin-Clavulanate) 875 mg Route: PO; sf1 Outcome: 01:29 Discharge ordered by . kb 02:40 Discharged to home via ambulance. sf1 02:40 Condition: good 02:40 Discharge instructions given to patient, Instructed on discharge instructions, follow up and referral plans. Demonstrated understanding of instructions, follow-up care, medications, Prescriptions given X 1. 02:41 Patient left the ED. sf1 Signatures: Dispatcher [employer] EDSD Skylar Casillas FNP-C FNP-Jared Rao mw2 Precious Salgado RN RN sf1
--- NOTE | 2021-08-27 01:29 | EDPHYS ---
Physician Documentation [facility] Name: Marty Farias Age: 76 yrs Sex: Female : 1945 Arrival Date: 08/26/2021 Time: 22:50 Bed 18 Private MD: ED Physician Luis Johnston HPI: 08/27 00:21 This 76 yrs old Female presents to ER via EMS with complaints of hip pain. kb 00:21 The patient or guardian reports pain. that occurred at home, sustained from unknown kb reason. The complaints affect the right quadriceps and right hip. Onset: The symptoms/episode began/occurred 2 day(s) ago. Modifying factors: The symptoms are alleviated by nothing, the symptoms are aggravated by nothing. Associated signs and symptoms: Loss of consciousness: the patient experienced no loss of consciousness, Pertinent positives: None. Severity of symptoms: At their worst the symptoms were moderate, in the emergency department the symptoms are unchanged. The patient has not experienced similar symptoms in the past. The patient has not recently seen a physician. Pt reports she had physical therapy on and started having shooting pains to right hip area approx 3 hours later. Historical: - Home Meds: 08/26 22:52 meloxicam Oral [Active]; Oxybutynin Chloride Oral [Active]; Tramadol Oral [Active]; sf1 - PMHx: 22:52 Anemia; Chronic pain; DVT; sf1 - Immunization history:: Flu vaccine is up to date. - Social history:: Smoking status: Patient denies any tobacco usage or history of. Patient/guardian denies using alcohol, street drugs. ROS: 08/27 00:20 Constitutional: Negative for fever, chills, and weight loss. kb MS/extremity: Positive for pain, of the right hip and right quadriceps. All other systems are negative. Exam: 00:20 Constitutional: This is a well developed, well nourished patient who is awake, alert, kb and in no acute distress. Head/Face: Normocephalic, atraumatic. ENT: Moist Mucous membranes Respiratory: Respirations even and unlabored. No increased work of breathing. Talking in full sentences Abdomen/GI: Soft, non-tender. No distention Skin: Warm, dry with normal turgor. Normal color. Neuro: Awake and alert, GCS 15, oriented to person, place, time, and situation. Moves all extremities. Normal gait. Psych: Awake, alert, with orientation to person, place and time. Behavior, mood, and affect are within normal limits. 00:20 Musculoskeletal/extremity: Extremities: grossly normal except: noted in the right hip: pain, tenderness, ROM: no acute changes, Circulation is intact in all extremities. Sensation intact. Vital Signs: 08/26 22:50 BP 150 / 68; Pulse 73; Resp 20; Temp 97.9(O); Pulse Ox 95% on R/A; Weight 123.38 kg; sf1 Height 5 ft. 4 in. (162.56 cm); 22:50 Body Mass Index 46.69 (123.38 kg, 162.56 cm) sf1 MDM: 22:53 Patient medically screened. kb 08/27 00:20 Data reviewed: vital signs, nurses notes. Data interpreted: Pulse oximetry: on room air kb is 95 %. Interpretation: normal. 01:28 Counseling: I had a detailed discussion with the patient and/or guardian regarding: the kb historical points, exam findings, and any diagnostic results supporting the discharge/admit diagnosis, lab results, radiology results, the need for outpatient follow up, a family practitioner, to return to the emergency department if symptoms worsen or persist or if there are any questions or concerns that arise at home. 08/27 01:25 Order name: Urine Dipstick-Ancillary; Complete Time: 01:53 EDMS 08/27 01:28 Order name: Urine Microscopic Only; Complete Time: 01:53 kb 08/26 23:08 Order name: CT Pelvis wo Cont kb 08/26 23:08 Order name: Femur Right XRAY kb 08/27 01:28 Order name: Urine Culture kb 08/27 00:52 Order name: Urine Dipstick-Ancillary (obtain specimen); Complete Time: 01:59 kb Administered Medications: 02:13 Drug: Augmentin (Amoxicillin-Clavulanate) 875 mg Route: PO; sf1 Disposition: 05:03 Co-signature as Attending Physician, Luis Johnston MD. mh7 Disposition Summary: 08/27/21 01:29 Discharge Ordered Location: Home kb Condition: Stable kb Diagnosis - Pain in right hip kb - UTI/ Urinary tract infection, site not specified kb Followup: kb - With: Emergency Department - When: As needed - Reason: Worsening of condition Followup: kb - With: Private Physician - When: 2 - 3 days - Reason: Recheck today's complaints, Continuance of care, Re-evaluation by your physician Discharge Instructions: - Discharge Summary Sheet kb - Urinary Tract Infection, Adult, [id number] kb Forms: - Medication Reconciliation Form kb - Thank You Letter kb - Antibiotic Education kb - Prescription Opioid Use kb - SBAR form mw2 Prescriptions: - Augmentin 875-125 mg Oral Tablet - take 1 tablet by ORAL route every 12 hours for 10 days; 20 tablet; Refills: 0, kb Product Selection Permitted Signatures: Dispatcher [employer] EDMS Skylar Casillas, TADC MORGAN-Luis Cordova MD MD mh7 Precious Salgado RN RN sf1
[2021-08-27 01:49] LABS: Urine Bacteria >50 /HPF (<20); Urine Mucus 1+ /HPF (NONE SEEN)
[2021-08-27] MEDS ORDERED: AMOX/K CLAV 875 MG TAB ONE (02:04)
[2021-08-27 02:59] VITALS: BP 150/68; TEMP 97.9; O2SAT 95
--- NOTE | 2021-08-27 08:45 | RAD REPORT ---
EXAM DESCRIPTION: RAD - Femur Right - 08/26/2021 11:50 pm CLINICAL HISTORY: PAIN COMPARISON: No comparisons FINDINGS: No acute fracture. No malalignment. Degenerative changes are present at the knee and hip. IMPRESSION: No acute osseous abnormality involving the right femur.
--- NOTE | 2021-08-28 12:40 | RAD REPORT ---
EXAM DESCRIPTION: CT - Pelvis Wo Cont - 08/27/2021 6:57 am CLINICAL HISTORY: 76 years Female right hip pain COMPARISON: CT scan of chest, abdomen and pelvis dated June 30, 2018. TECHNIQUE: Images were obtained in axial, sagittal, and coronal planes. No intravenous contrast was administered. This exam was performed according to our departmental dose-optimization program which includes use of Automated Exposure Control, adjustment of the mA and/or kV according to patient size and/or use o f iterative reconstruction technique. FINDINGS: No acute fractures seen. Satisfactory articulation femoral heads bilaterally with acetabul ar regions. 2.2 x 2.1 cm erosive change right sacral foramen consistent with perineural cyst or Tarlov's cyst. Ap pearance is unchanged when correlated with the prior study. Enlarged uterus for patient's age with lobular contour and calcifications fibroid change. Appearance is unchanged when correlated with the prior study. 3 mm calcification posterior right bladder possibly calculus. No definite hydroureter noted. Recently passed calculus could be considered. IMPRESSION: 3 mm calcification posterior right bladder possibly calculus. Correlation with CT scan o f the abdomen and pelvis could be helpful to further exclude distal ureteral calculus. Recently passe d calculus could be considered as well. Enlarged fibroid uterus unchanged. 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 Co nsider correlation with magnetic resonance study for further characterization. Electronically signed by: Rufina Felix MD 08/27/2021 12:44 AM PAPER SPOOLER Due to temporary technical issues with the PACS/Fluency reporting system, reports are being signed by the in house radiologist without review as a courtesy to ensure prompt reporting. The interpreting r adiologist is fully responsible for the content of the report
== END 2021-08-27 02:41 | disposition home or self-care (01) ==
LOC: ER 22:40
DX: M25.551 Pain in right hip (principal); N39.0 Urinary tract infection, site not specified; Z86.718 Personal history of other venous thrombosis and embolism
CPT/HCPCS: 72192; 81003; 81015; 87077; 87086; 87088; 87186; 99284

== ENCOUNTER 2022-05-07 11:23 | Day surgery (SDC) | payer OTHER ==
[~2022-05-07 11:23] MED LIST: BUPIVACAINE 0.25% PF 10 ML VIAL IJ SCH; LIDOCAINE 2% MPF 5 ML VIAL IJ ONE; MOXIFLOXACIN HCL 10 DROPS/ML **OR USE OPTH SCH; PHENYLEPHRINE 10% OPTH 5ML OPTH SCH
[2022-05-07] MEDS ORDERED: Ringers Lactate 1,000 ML IV ONE (11:48)
[2022-05-07] MEDS ORDERED: CYCLOPENTOLATE 1% OPTH 2 ML ONE (11:49)
[2022-05-07] MEDS ORDERED: PHENYLEPHRINE 10% OPTH 5ML ONE (11:50)
[2022-05-07] MEDS ORDERED: TETRACAINE HCL 0.5% 4ML OPTH ONE (11:50)
[2022-05-07] MEDS: CYCLOPENTOLATE 1% OPTH 2 ML OPTH SCH ×3 (12:20→12:30)
[2022-05-07] MEDS ORDERED: LIDOCAINE 2% MPF 5 ML VIAL ONE ×2 (12:22→12:24)
[2022-05-07] MEDS ORDERED: BSS OPTHALMIC SOL 15 ML OPTH ONE (12:22)
[2022-05-07] MEDS ORDERED: EPINEPHRINE/PF 1 MG/ML AMP ONE (12:23)
[2022-05-07] MEDS ORDERED: propofoL 200 MG/20 ML VIAL IV ONE ×2 (12:24→13:12)
[2022-05-07] MEDS ORDERED: FENTANYL CITR 100 MCG/2 ML ONE (12:24)
[2022-05-07] MEDS ORDERED: POVIDONE-IODINE 5% EYE DROPS ONE (12:24)
[2022-05-07] MEDS ORDERED: PHENYLEPHRINE 10% OPTH 5ML OPTH ONE ×2 (12:25→12:30)
[2022-05-07] MEDS ORDERED: LIDOCAINE 1% MPF 2 ML AMPULE ONE (12:34)
[2022-05-07] MEDS: LIDOCAINE 1% MPF 5 ML VIAL ONE ×2 (13:00→14:18)
[2022-05-07] MEDS: BUPIVACAINE 0.25% PF 10 ML VIAL ONE ×2 (13:00→14:17)
[2022-05-07] MEDS: TETRACAINE HCL 0.5% 4ML OPTH OPTH ONE ×2 (13:00→14:19)
[2022-05-07] MEDS ORDERED: GLYCOPYRROLATE 0.2 MG/ML SYR ONE ×2 (13:09→13:38)
[2022-05-07] MEDS: BALANCED SALT IRRIG PLAIN 500 ML IRR ONE ×2 (13:10→14:19)
[2022-05-07] MEDS: DUOVISC 1 KIT OPTH ONE ×2 (13:12→14:20)
[2022-05-07] MEDS ORDERED: Phenylephrine HCl 10 MG/ML 1 ML VIAL ONE (13:34)
[2022-05-07] MEDS: MOXIFLOXACIN HCL 0.5% 3ML OPTH OPTH ONE ×2 (13:44→14:20)
[2022-05-07 14:31] VITALS: O2SAT 99
[2022-05-07] MEDS ORDERED: MOXIFLOXACIN HCL 10 DROPS/ML **OR USE OPTH ONE (14:41)
[2022-05-07 15:17] VITALS: BP 109/54; TEMP 97.1
--- NOTE | 2022-05-08 00:51 | OP ---
Date of Procedure: 05/07/2022 Surgeon: Lindsey Murillo MD Anesthesiologist: Dr. Abebe Ahn. Preoperative Diagnosis: Combined form of cataract, left eye. Operation Performed: Phacoemulsification with intraocular lens implant, left eye. Anesthesia: Monitored anesthesia care, converted to general anesthesia. Complications: Description Of Procedure: In the operating room, the patient was prepped with Betadine and draped. A conjunctival incision was made in the inferior nasal quadrant with Melissa scissors. A sub-Tenon block consisting of a 1:1 mixture of 2% Xylocaine and 0.25% bupivacaine was placed through the conjunctival incision with a blunt cannula. A [place] balloon was placed over the eye for two minutes. In the operating room the patient was prepped and draped in the usual sterile fashion for ophthalmic surgery. A lid speculum was placed in the left eye. Two paracentesis sites were made superiorly and inferiorly in the limbal cornea. Viscoat was placed in the anterior chamber and a keratome was used to enter the anterior chamber. A 360 degree capsulotomy was performed with utrata forceps. The lens was hydrodissected with BSS and rotated freely. The lens was removed with a stop and chop technique. 8.8 phaco CDE was used to remove the lens. Residual cortex was removed with the irrigation and aspiration. Provisc was placed in the capsular bag. A DCB00, +20.5 lens was placed in the capsular bag without complications. Irrigation and aspiration was used to remove residual viscoelastic. The paracentesis sites were hydrated with BSS. The wound and paracentesis sites were inspected and found to be watertight. Vigamox 0.07 cc was placed intracamerally at the end of the procedure. The eye was patched with a soft cotton patch and a clear shield. The patient was returned to day surgery in good condition. Comments: After capsulotomy, the patient was turning her head away from the surgeon, such that I was unable to operate. One 10-0 nylon suture was placed in the wound and she was placed under general anesthesia. At the end of the procedure, one 10-0 nylon suture was placed at the wound. Discharge Instructions: Ms. Farias is discharged to home in good condition and is to follow up with Dr. Murillo in the morning. SAMSON/SHIVANI Voice ID: [id number] Report ID: [id number] MTDD
== END 2022-05-07 15:14 | disposition home or self-care (01) ==
LOC: OR 11:23
PROVIDERS: ATTEND Ophthalmology Retina Specialist
PROC: 08RK3JZ Replacement of Left Lens with Synthetic Substitute, Percutaneous Approach (ICD-10-PCS; principal; 2022-05-07 13:00)
DX: H25.812 Combined forms of age-related cataract, left eye (principal)
CPT/HCPCS: 66984; J2704 ×2; J0171; J2001 ×2; J2370; J3010; J7120